=== PATIENT | male | born 1940 | race Caucasian/White ===

== ENCOUNTER 2016-04-19 13:09 | Emergency (ER) | payer MEDICARE, BC ==
--- NOTE | 2016-04-19 13:46 | CT REPORT ---
EXAM:CAT SCAN; HEAD W/O CON 76015 INDICATION: Multiple recent falls. Trauma. COMPARISON:02/03/2016 TECHNIQUE:Routine noncontrast axial head CT was performed. Radiation dose reduction technique was uti lized. FINDINGS: Some images were repeated due to patient motion artifact. Moderate cerebral atrophy is unch anged. Moderate chronic small vessel ischemic disease is again demonstrated in the cerebral white mat ter. No acute infarct is demonstrated. No extra-axial fluid collections are identified. There is no m ass. The skull appears intact. Opacification of part of the left ethmoid sinus and mild mucosal thickening in the left maxillary sinus are unchanged. A small lipoma in the left frontal scalp is unchanged. IMPRESSION: 1. No acute fracture or intracranial hemorrhage. No subdural hematoma. 2. Stable moderate diffuse cerebral atrophy and unchanged moderate chronic small vessel schema diseas e. No acute infarct. 3. Unchanged left ethmoid and left maxillary sinus inflammatory disease. Unchanged left frontal scalp lipoma. Final Electronic Signature: This report was electronically signed by Brijesh Hong MD on 04/19/2016 1:44 PM. madelin /
--- NOTE | 2016-04-19 15:04 | ER NURSING DOCUMENTATION ---
Nurse's Notes [facility] Name:Jim Hoover Age:76 yrs Sex:Male :1940 Arrival Date:04/19/2016 Time:13:09 BedTrauma A Private MD:Wilner Sheets Diagnosis:Closed Head Injury w/o Cranial Wound, Unspec State LOC;A FIB Presentation: 04/19 13:12 Presenting complaint: Patient states: FELL AT HOME THIS MORNING 0730. POSSIBLY LOST ew CONSCIOUSNESS. WAS WALKING FROM BEDROOM INTO BATHROOM. PATIENT BEILIEVES THAT HE HIT IS HEAD ON THE BATHTUB. Transition of care: [facility]. Notified ED Physician of Dr. Meyer notified. Care prior to arrival: None. Activity prior to arrival: Ambulatory @ scene. Mechanism of Injury: Fall from standing position. 13:12 Method Of Arrival: Wheelchair ew 13:12 Acuity: ARCADIO 3 ew 13:40 Mechanism of Injury: resulted from a fall. lpr Triage Assessment: 13:17 General: Appears in no apparent distress, comfortable, Behavior is cooperative, ew pleasant. Pain: Denies pain. EENT: No deficits noted. Neuro: No deficits noted. Cardiovascular: No deficits noted. Respiratory: No deficits noted. GI: No deficits noted. : No deficits noted. Derm: No deficits noted. Musculoskeletal: No deficits noted. Injury Description:. 13:48 Neuro:. ma 14:03 Neuro: Reports headache. ma Historical: - Allergies: Prozac; PENICILLINS; PENICILLINS; Bactrim; Morphine; Oxycodone HCl; [place] Carbonate; Prozac; SHELLFISH; Dilaudid; - PMHx: BIPOLAR DISORDER; HYPERTENSION; CANCER, PROSTATE; VAGUS NERVE STIMULATOR; BPH; OSTEOARTHRITIS; actinic keratosis; HYPERTENSION; ATRIAL FIB; GOUT; TIA; DEPRESSION; BIPOLAR DISORDER; obstructive sleep apnea; Hyperlipidemia; Chronic Hypokalemia; Staphylococcus aureus sepsis; Prostate Cancer; Syncope (February 03, 2016); Diabetes Mellitus; Squamos cell carcinoma; Hematoma - : Very Large Right Lower BackAnticoagulated (March 09, 2016); Fall (March 09, 2016); - PSHx: sinus surgery; prostatectomy; Bilateral cataract surgery; Bilateral cataract surgery; left knee replacement; - Tetanus: < 10 years. - Ebola Screening: : No symptoms or risks identified at this time. . - Immunization history: Pneumococcal vaccine is up to date, Flu Vaccine < 1 year. - Social history: Smoking status: Patient states was never smoker of tobacco. Patient uses alcohol. - Advance directive:: Yes. - Code Status:: No code. Screenin:49 Infectious Disease Risk None. Abuse screen: Denies threats or abuse. Nutritional ma screening: No deficits noted. Assessment: 14:22 Reassessment: Patient states feeling better. Patient states symptoms have improved. ma Patient appears in no apparent distress at this time. Able to ambulate without difficulty. Vital Signs: 13:19 BP 123 / 81; Pulse 92; Resp 18; Pulse Ox 96% on R/A; Weight 104.33 kg; Height 6 ft. 2 ew in. (187.96 cm); Pain 0/10; 13:30 BP 145 / 74; Pulse 88; Pulse Ox 97% 2 lpm ; ma 14:00 BP 149 / 61; Pulse 93; Pulse Ox 96% ; ma 13:19 Body Mass Index 29.53 (104.33 kg, 187.96 cm) ew 13:30 Pt not cooperative with monitoring equipment ma Lakisha Coma Score: 12:50 Eye Response: spontaneous(4). Verbal Response: oriented(5). Motor Response: obeys lpr commands(6). Total: 15. Trauma Score (Adult): 13:49 Eye Response: spontaneous(1); Verbal Response: oriented(1); Motor Response: obeys ma commands(2); Systolic BP: > 89 mm Hg(4); Respiratory Rate: 10 to 29 per min(4); Warren Score: 15; Trauma Score: 12 ED Course: 13:09 Patient arrived in ED. ds 13:09 Wilner Sheets MD is Private Physician. ds 13:11 Nellie Ann is Primary Nurse. ew 13:14 Triage completed. ew 13:15 Khoa Meyer MD is Attending Physician. sc 13:15 Pulse Ox - RN Monitoring Only NIBP On - RN Monitoring Only. ma 13:[address] tt 13:40 Patient moved back from CT. tt 13:52 Valuables Given to family. Patient has correct armband on for positive identification. ma Placed in gown. Bed in low position. Call light in reach. Side rails up X2. Adult w/ patient. 14:33 Wilner Sheets MD is Referral Physician. sc 15:02 Discontinued IV intact, bleeding controlled, pressure dressing applied, No ma redness/swelling at site. IV initiated by computer education teacher. Administered Medications: No medications were administered Outcome: 14:34 Discharge ordered by . or 15:02 Discharged to home [place] 15: Condition: stable 15:02 Instructed on discharge instructions, follow up and referral plans. 15:03 Patient left the ED. [place] 04/20 14:46 Discharge F/U Call: Unable to reach: left voicemail: lp Signatures: Rolanda Mitchell RN RN Lisa Crump RN RN wesley Pulido, Ann, Reg Reg ds Khoa Meyer MD MD sc Terriere, Tracy tt Roberts, Leslie RN RN Nellie Valentine
--- NOTE | 2016-04-19 15:04 | ER PHYSICIAN DOCUMENTATION ---
Physician Documentation [facility] Name:Jim Hoover Age:76 yrs Sex:Male :1940 Arrival Date:04/19/2016 Time:13:09 BedTrauma A Private MD:Wilner Sheets EDlayoKhoa Disposition: 04/19/16 14:34 Discharged to Home/Self Care. Impression: Closed Head Injury w/o Cranial Wound, Unspec State LOC, A FIB. - Condition is Good. - Discharge Instructions: ATRIAL FIBRILLATION, Acute Brain Injuries - HEAD INJURY, No Wake-Up (Adult). - Medical Reconciliation form form. - Follow up: Wilner Sheets MD; When: 1 week; Reason: Recheck today's complaints, Continuance of care. - Problem is new. - Symptoms have improved. HPI: 04/19 14:34 This 76 yrs old Male presents to ER via Wheelchair with complaints of Fall sc Injury. 14:34 Details of fall: The patient fell from an upright position, while standing, while sc walking. Onset: The symptom(s)/episode began/occurred at 07:30. Associated injuries: The patient sustained injury to the head, contusion. Associated signs and symptoms: Pertinent positives: memory problems, balance problems, Loss of consciousness: the patient experienced loss of consciousness, the patient was "dazed". The patient has experienced similar episodes in the past, a few times. aware of losing balance and falling, no syncope. Historical: - Allergies: Prozac; PENICILLINS; PENICILLINS; Bactrim; Morphine; Oxycodone HCl; [place] Carbonate; Prozac; SHELLFISH; Dilaudid; - PMHx: BIPOLAR DISORDER; HYPERTENSION; CANCER, PROSTATE; VAGUS NERVE STIMULATOR; BPH; OSTEOARTHRITIS; actinic keratosis; HYPERTENSION; ATRIAL FIB; GOUT; TIA; DEPRESSION; BIPOLAR DISORDER; obstructive sleep apnea; Hyperlipidemia; Chronic Hypokalemia; Staphylococcus aureus sepsis; Prostate Cancer; Syncope (February 03, 2016); Diabetes Mellitus; Squamos cell carcinoma; Hematoma - : Very Large Right Lower BackAnticoagulated (March 09, 2016); Fall (March 09, 2016); - PSHx: sinus surgery; prostatectomy; Bilateral cataract surgery; Bilateral cataract surgery; left knee replacement; - Tetanus: < 10 years. - Ebola Screening: : No symptoms or risks identified at this time. . - Immunization history: Pneumococcal vaccine is up to date, Flu Vaccine < 1 year. - Social history: Smoking status: Patient states was never smoker of tobacco. Patient uses alcohol. - Advance directive:: Yes. - Code Status:: No code. ROS: 14:36 Constitutional: Negative for fever, chills, and weight loss. sc Eyes: Negative for injury, pain, redness, and discharge. ENT: Negative for injury, pain, and discharge. Neck: Negative for injury, pain, and swelling. Cardiovascular: Negative for chest pain, palpitations, and edema. Respiratory: Negative for shortness of breath, cough, wheezing, and pleuritic chest pain. Abdomen/GI: Negative for abdominal pain, nausea, vomiting, diarrhea, and constipation. Back: Negative for injury and pain. Skin: Negative for injury, rash, and discoloration. 14:36 Psych: Negative for depression, anxiety, suicide ideation, homicidal ideation, and sc hallucinations. 14:36 MS/extremity: Positive for abrasion. 14:36 Neuro: Positive for loss of consciousness. Exam: Constitutional: This is a well developed, well nourished patient who is awake, alert, and in no acute distress. Head/Face: Normocephalic, atraumatic. Eyes: Pupils equal round and reactive to light, extra-ocular motions intact. Lids and lashes normal. Conjunctiva and sclera are non-icteric and not injected. Cornea within normal limits. Periorbital areas with no swelling, redness, or edema. ENT: Nares patent. No nasal discharge, no septal abnormalities noted. Tympanic membranes are normal and external auditory canals are clear. Oropharynx with no redness, swelling, or masses, exudates, or evidence of obstruction, uvula midline. Mucous membranes moist. Neck: Trachea midline, no thyromegaly or masses palpated, and no cervical lymphadenopathy. Supple, full range of motion without nuchal rigidity, or vertebral point tenderness. No meningismus. Chest/axilla: Normal chest wall appearance and motion. Nontender with no deformity. No lesions are appreciated. Cardiovascular: Regular rate and rhythm with a normal S1 and S2. No gallops, murmurs, or rubs. Normal PMI, no JVD. No pulse deficits. Respiratory: Lungs have equal breath sounds bilaterally, clear to auscultation and percussion. No rales, rhonchi or wheezes noted. No increased work of breathing, no retractions or nasal flaring. Abdomen/GI: Soft, non-tender, with normal bowel sounds. No distension or tympany. No guarding or rebound. No evidence of tenderness throughout. Back: No spinal tenderness. No costovertebral tenderness. Full range of motion. Male : Normal genitalia with no discharge or lesions. Skin: Warm, dry with normal turgor. Normal color with no rashes, no lesions, and no evidence of cellulitis. MS/ Extremity: Pulses equal, no cyanosis. Neurovascular intact. Full, normal range of motion, negative Homans's, calves equal bilaterally. 14:36 Neuro: Awake and alert, GCS 15, oriented to person, place, time, and situation. sc Cranial nerves II-XII grossly intact. Motor strength 5/5 in all extremities. Sensory grossly intact. Cerebellar exam normal. Normal gait. Vital Signs: 13:19 BP 123 / 81; Pulse 92; Resp 18; Pulse Ox 96% on R/A; Weight 104.33 kg; Height 6 ft. 2 ew in. (187.96 cm); Pain 0/10; 13:30 BP 145 / 74; Pulse 88; Pulse Ox 97% 2 lpm ; ma 14:00 BP 149 / 61; Pulse 93; Pulse Ox 96% ; ma 13:19 Body Mass Index 29.53 (104.33 kg, 187.96 cm) ew 13:30 Pt not cooperative with monitoring equipment wv Whitman Coma Score: 12:50 Eye Response: spontaneous(4). Verbal Response: oriented(5). Motor Response: obeys lpr commands(6). Total: 15. Trauma Score (Adult): 13:49 Eye Response: spontaneous(1); Verbal Response: oriented(1); Motor Response: obeys ma commands(2); Systolic BP: > 89 mm Hg(4); Respiratory Rate: 10 to 29 per min(4); Lakisha Score: 15; Trauma Score: 12 MDM: 13:15 Patient medically screened. nm 14:36 Differential diagnosis: abrasion, closed head injury, contusion. Data reviewed: vital sc signs, nurses notes, radiologic studies, CT scan, and as a result, I will discharge patient. Counseling: I had a detailed discussion with the patient and/or guardian regarding: the historical points, exam findings, and any diagnostic results supporting the discharge/admit diagnosis, radiology results, the need for outpatient follow up, Stepping On class referral. 04/19 13:48 Order name: CAT SCAN; HEAD W/O CON [id number] EDMS Dispensed Medications: No medications were administered Signatures: Rolanda Mitchell, Khoa Disla RN, ma, MD MD sc Wooley, Erin ew
== END 2016-04-19 15:04 | disposition home or self-care (01) ==
LOC: ER 13:09
DX: S06.891A Other specified intracranial injury with loss of consciousness of 30 minutes or less, initial encounter (principal); S00.91XA Abrasion of unspecified part of head, initial encounter; W19.XXXA Unspecified fall, initial encounter; Y92.012 Bathroom of single-family (private) house as the place of occurrence of the external cause; Y93.01 Activity, walking, marching and hiking; I48.91 Unspecified atrial fibrillation; I10 Essential (primary) hypertension; Z79.899 Other long term (current) drug therapy; Z85.46 Personal history of malignant neoplasm of prostate
CPT/HCPCS: 70450; 99283; 99284

== ENCOUNTER 2016-08-30 12:45 | Observation (INO) | payer MEDICARE, BC ==
[2016-08-30] MEDS ORDERED: FENTANYL 100 MCG/2 ML VIAL ONE ×2 (13:04→13:27)
[2016-08-30] MEDS ORDERED: ONDANSETRON ODT 4 MG TAB.RAPDIS ONE (13:05)
[2016-08-30] MEDS ORDERED: NORMAL SALINE 1,000 ML IV ONE (13:27)
[2016-08-30 14:39] LABS: INR 1.8
[2016-08-30 14:43] LABS: A/G RATIO 1.5; ALBUMIN 4.6 g/dL (3.5-5.0); ALKALINE PHOSPHATASE 65 U/L (38-126); ALT 35 U/L (21-72); AST 40 U/L (17-59); BILIRUBIN, TOTAL 1.2 mg/dL (0.2-1.3); BLOOD UREA NITROGEN 23 mg/dL (9-20); CALCIUM 10.2 mg/dL (8.4-10.2); CHLORIDE 101 mmol/L (98-107); EST GLOMERULAR FILTRATION RATE > 60 mL/min; GLUCOSE 177 mg/dL (70-100); POTASSIUM 3.9 mmol/L (3.5-5.1); SODIUM 139 mmol/L (137-145); TOTAL PROTEIN 7.6 g/dL (6.3-8.2)
[2016-08-30 14:47] LABS: BASOPHILS 0.1 % (0.0-2.0); EOSINOPHILS 0.4 % (0.0-6.0); HEMOGLOBIN 17.2 g/dL (14.0-18.0); LYMPHOCYTES# 0.8 X 10^3uL (0.8-3.8); MEAN CELL VOLUME 91.2 fL (80.0-100.0); MEAN CORPUS. HGB CONCENTRATION 35.1 g/dL (32.0-36.0); MEAN PLATELET VOLUME 9.6 fL (7.4-10.4); MONOCYTES 5.8 % (2.0-10.0); MONOCYTES# 0.7 X 10^3uL (0.2-1.0); NEUTROPHILS 86.7 % (54.0-75.0); NEUTROPHILS# 10.6 X 10^3uL (2.6-6.7); PLATELET COUNT 222 X 10^3uL (130-440); RED BLOOD COUNT 5.37 X 10^6uL (4.20-6.10); RED CELL DISTRIBUTION WIDTH 14.2 % (11.5-14.5); WHITE BLOOD COUNT 12.1 X 10^3uL (3.9-10.7)
[2016-08-30] MEDS ORDERED: POLYETHYLENE GLYCOL 3350 17 GM POWD.PACK PO PRN (17:51)
[2016-08-30] MEDS ORDERED: HOME MEDICATION LIST NEEDED 1 EA EACH MISC ONE (17:51)
[2016-08-30] MEDS ORDERED: ACETAMINOPHEN 325 MG TABLET PO PRN (17:51)
[2016-08-30] MEDS ORDERED: MAG-AL PLUS XS SUSP 30 ML UDC PO PRN (17:51)
[2016-08-30] MEDS ORDERED: ZOLPIDEM TARTRATE 5 MG TABLET PO PRN (17:51)
[2016-08-30] MEDS ORDERED: DEXTROSE 50% WATER 25 GM/50 ML SYR IV PRN (18:06)
[2016-08-30] MEDS ORDERED: DIPH,PERTUSS(ACELL),TET VAC/PF 0.5 ML VIAL IM ONE ×2 (18:09→22:09)
[2016-08-30] MEDS: traMADol HCL 50 MG TABLET PO PRN (18:48)
[2016-08-30] MEDS ORDERED: metFORMIN 500 MG TABLET PO SCH (21:00)
[2016-08-30] MEDS ORDERED: FENOFIBRATE MICRONIZED 160 MG PO SCH (21:00)
[2016-08-30] MEDS: metFORMIN 500 MG TABLET PO SCH (21:01)
[2016-08-30] MEDS: INSULIN LISPRO 100 UNIT/ML ML SUBCUT SCH (22:23)
[2016-08-31] MEDS: traMADol HCL 50 MG TABLET PO PRN ×2 (00:57→09:24)
[2016-08-31] MEDS: INSULIN LISPRO 100 UNIT/ML ML SUBCUT SCH ×4 (07:19→23:06)
[2016-08-31] MEDS: metFORMIN 500 MG TABLET PO SCH ×2 (08:08→23:08)
--- NOTE | 2016-08-31 08:30 | CONSULTATION ---
DATE OF ADMISSION: 08/30/16 CONSULTING PHYSICIAN: Wilner Sheets MD HISTORY OF PRESENT ILLNESS: Patient is a 76-year-old male who suffered a right humeral fracture, and is scheduled for surgery 08/31/[address] Anderson[address]. Anderson has requested a consultation, preoperative history and physical and surgical clearance. Patient has no other complaints at this time. Injury happened when he tried to help his dog down the stairs. Apparently he lost his balance and fell down 14 steps. He noticed immediate pain in the right arm. He felt no further new pain in the low back. The patient is currently scheduled for low back surgery with neurosurgeon Dr. Santillan in 2 weeks. ALLERGIES: Bactrim. Dilaudid (vomiting, GI distress), [place], Morphine, Oxycodone, Penicillin, Prozac (rash), shell fish (vomiting, GI distress). MEDICATIONS Vitamin D 2000 units 1 tab p.o. daily. Minocycline 100 mg p.o. daily. Liothyronine 50 mcg 1-2 tabs daily (current dose is not clear). Fetzima 40 mg p.o. daily. Coumadin 2.5 mg p.o. daily. Amlodipine/Benazepril 10/20 mg p.o. daily. Abilify 2 mg tab p.o. daily. Nystatin 100,000 units per gram powder to be applied topically q.i.d. PRN candidiasis rash. Metformin 500 mg p.o. b.i.d. Olmesartan/Hydrochlorothiazide 40/25 mg 1 tab p.o. q.a.m. Bystolic 10 mg 2 tabs p.o. daily. Fenofibrate 160 mg p.o. q.h.s. KCL 10 MEQ p.o. daily. Lamotrigine 200 mg p.o. daily. Allopurinol 300 mg p.o. daily. Wellbutrin XL 150 mg 2 tabs p.o. daily. PAST MEDICAL HISTORY 1. Anisocoria (unequal pupils). 2. Diabetes mellitus diagnosed 2016. 3. Transient ischemic attack, previously followed by Neurologist Dr. Cummings. 4. Vagus nerve stimulator (VNS), followed by Dr. Wallace. 5. Lumbar spinal stenosis, followed by Dr. Santillan. 6. 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 Landon. 7. Prostate cancer, status post robotic prostatectomy and followed by Dr. Riggins. 8. Obstructive sleep apnea, on CPAP, followed by Dr. Bhardwaj. 9. Hyperlipidemia. 10. Hypertension. 11. Gout. 12. Lumbar degenerative joint disease. 13. Depression, followed by Dr. Omalley. 14. Benign prostatic hypertrophy. 15. Bipolar affective disorder, with elements of both depression and petra. 16. Atrial fibrillation, followed by Dr. Mcclain. 17. Recurrent intertriginous candidiasis. 18. Lumbar degenerative disk disease. 19. Staphylococcus aureus sepsis in 2011, secondary to right elbow wound, resulting in delirium. 20. Neurogenic claudication. 21. Morbid obesity. 22. Chronic low back pain. 23. Bilateral knee osteoarthritis. 24. Gait instability. 25. Acinetic keratosis. 26. Cholelithiasis, asymptomatic. 27. Chronic hypokalemia. 28. Left total knee replacement 2012. 29. Right quadriceps tendon rupture surgery 2011. 30. Cataract surgery 2011. 31. Transurethral resection of the prostate 2009. 32. Sinus surgery x3. 33. Left rotator cuff repair x2 2008, unsuccessful. SOCIAL HISTORY: , no children. 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 Social alcohol. No smoking. FAMILY HISTORY: Father at 78 of cerebrovascular accident and hypertension. Mother at 93 of diabetes. Sister of Alzheimers and had transient ischemic attack. Another sister has ulcerative colitis and ileostomy. A third sister has ulcerative colitis. REVIEW OF SYSTEMS: No chest pain, chest pressure, chest tightness or other anginal symptoms. No underlying coronary artery disease. No lung, kidney, liver , thyroid, seizures, new skin, allergy or unusual bleeding disorders. PREVENTATIVE HEALTH: Td 2006 and is due for Tdap today. Pneumovax 2002. Prevnar 2014. Gets annual flu shot. PHYSICAL EXAMINATION VITAL SIGNS: Not available to me at this time. HEENT: EOMI. Pupils equal to light. Normal conjunctivae. TMs normal. No coryza. Pharynx not injected. Midline structures. NECK: No lymphadenopathy. No thyromegaly. No carotid bruits. Neck supple. CHEST: Clear. No rales, rhonchi or wheezes. Good breath sounds and symmetry throughout. COR: RRR without murmurs, gallops, rubs or clicks. No jugular venous distention. No ectopy. ABDOMEN: Soft, nontender. No hepatosplenomegaly. No masses. No bruits. No inguinal nodes. Bowel sounds present. LOWER EXTREMITIES: No edema. Peripheral pulses present. Negative Homans sign. Right hand neurovascularly intact. Please see Dr. Gómez note for further details with respect to right arm. NEUROLOGIC: Cranial nerves 2-12 intact. Motor 5/5 and appears to have good strength in right hand. Sensory intact throughout. EKG: Pending. LABORATORY DATA: White blood cell count 12.1, hemoglobin and hematocrit 17.2/ 49.0, platelets 222,000. Sodium 139, potassium 3.9, chloride 101, CO2 23, BUN 23 , creatinine 1.2, glucose 177. Calcium 10.2, total bilirubin 1.2. AST 40, ALT 35 , alkaline phosphatase 65, total protein 7.6, albumin 4.6. Protime 23.9 with INR 1.8. ASSESSMENT 1. Right humeral fracture. 2. Atrial fibrillation, on Coumadin. 3. Diabetes mellitus type 2. 4. Hypertension. 5. Hyperlipidemia. 6. Morbid obesity. 7. Obstructive sleep apnea, on CPAP. 8. Prostate cancer. 9. Depression/bipolar I, status post vagus nerve stimulator. PLAN 1. Patient is considered cleared for above surgery. 2. Will discuss with Dr. Anderson whether to consider vitamin K for elevated INR. 3. Tdap. 4. Hold Metformin in a.m. 5. Glucoscans q.a.c. and q.h.s. with Humalog insulin sliding scale. 6. INR in a.m. 7. DNR status. Copies to: Dr. Anderson, Dr. Santillan (neurosurgeon, [place]) [facility]
--- NOTE | 2016-08-31 08:45 | CT REPORT ---
HISTORY: Head trauma status post a fall COMPARISON: CT angiography from July 25, 2016 TECHNIQUE: Axial non-contrast images obtained from skull vertex through foramen magnum. Dose reduction technique was utilized. FINDINGS: Postoperative changes of prior sinonasal surgery. Inflammatory changes demonstrated in the left ethmo id air cells, unchanged from prior. The calvarium and skull base appear normal without evidence of fr acture. There is moderate atrophy of the brain parenchyma with patchy subcortical white matter hypoattenuatio n. This results in mild ventricular enlargement. Intracranial atherosclerosis is further noted. Findi ngs are nonspecific but most compatible with chronic microvascular changes. Mild crowding of the high cortical sulci seen. No intracranial hemorrhage observed. No evidence of a pathologic extra-axial fl uid collection. No midline shift or hydrocephalus. Is a small lipoma in the left frontal scalp on ser ies 3 image 11. No scalp hematoma seen. IMPRESSION: 1. No evidence of an acute traumatic intracranial process. 2. Evidence of chronic microvascular change. Final Electronic Signature: This report was electronically signed by Tj Rawls MD on 08/31/2016 8:42 AM. renetta /
[2016-08-31] MEDS ORDERED: LISINOPRIL 20 MG TABLET PO SCH (09:00)
[2016-08-31] MEDS ORDERED: AMLODIPINE BESYLATE 5 MG TABLET PO SCH (09:00)
[2016-08-31] MEDS ORDERED: ALLOPURINOL 300 MG TABLET PO SCH (09:00)
[2016-08-31] MEDS ORDERED: LISINOPRIL 10 MG TABLET PO SCH (09:00)
[2016-08-31] MEDS ORDERED: LAMOTRIGINE 200 MG PO SCH (09:00)
[2016-08-31] MEDS ORDERED: OLMESARTAN PO SCH (09:00)
[2016-08-31] MEDS ORDERED: LAMOTRIGINE 150 MG PO SCH (09:00)
[2016-08-31] MEDS ORDERED: POTASSIUM CHLORIDE ER 10 MEQ TABLET PO SCH (09:00)
[2016-08-31] MEDS ORDERED: LAMOTRIGINE 25 MG TABLET PO SCH (09:00)
[2016-08-31] MEDS ORDERED: LEVOMILNACIPRAN HYDROCHLORIDE 40 MG PO SCH ×2 (09:00)
[2016-08-31] MEDS ORDERED: [UNRECOGNIZED DRUG - OTHER] PO SCH (09:00)
[2016-08-31] MEDS ORDERED: NEBIVOLOL HCL 10 MG TABLET PO SCH (09:00)
[2016-08-31] MEDS ORDERED: buPROPion XL DAILY 150 MG TABLET PO SCH (09:00)
[2016-08-31] MEDS ORDERED: Minocycline Hcl [Minocin] 100 MG PO SCH ×2 (09:00)
[2016-08-31] MEDS ORDERED: BENAZEPRIL PO SCH (09:00)
[2016-08-31] MEDS ORDERED: CHOLECALCIFEROL 1,000 UNIT CAPSULE PO SCH (09:00)
[2016-08-31] MEDS ORDERED: HYDROCHLOROTHIAZIDE PO SCH (09:00)
[2016-08-31] MEDS ORDERED: LIOTHYRONINE PO SCH (09:00)
[2016-08-31] MEDS ORDERED: ARIPIPRAZOLE 1 MG PO SCH (09:00)
[2016-08-31] MEDS ORDERED: AMLODIPINE PO SCH (09:00)
--- NOTE | 2016-08-31 11:21 | RADIOLOGY REPORT ---
Three views of the humerus demonstrates comminuted oblique fracture of the distal humeral shaft with approximately 30 degrees of apex anterior angulation. Limited views of the joints are unremarkable. IMPRESSION: Comminuted, angulated right distal humerus fracture. MTDD
[2016-08-31] MEDS ORDERED: ACETAMINOPHEN 325 MG TABLET PO PRN ×3 (14:23→16:52)
[2016-08-31] MEDS ORDERED: ZOLPIDEM TARTRATE 5 MG TABLET PO PRN ×2 (14:23→16:52)
[2016-08-31] MEDS ORDERED: MAG-AL PLUS XS SUSP 30 ML UDC PO PRN ×2 (14:23→16:52)
[2016-08-31] MEDS ORDERED: DEXTROSE 50% WATER 25 GM/50 ML SYR IV PRN ×2 (14:23→16:52)
[2016-08-31] MEDS ORDERED: POLYETHYLENE GLYCOL 3350 17 GM POWD.PACK PO PRN ×2 (14:23→16:52)
[2016-08-31] MEDS ORDERED: traMADol HCL 50 MG TABLET PO PRN ×2 (14:23→16:52)
[2016-08-31] MEDS ORDERED: LIDOCAINE HCL 1% 20 ML VIAL SUBCUT PRN ×2 (14:23→16:52)
[2016-08-31] MEDS ORDERED: FAMOTIDINE IN SALINE, ISO-OSM 20 MG/50 ML PIGGYBACK IV SCH ×2 (14:30→16:52)
[2016-08-31] MEDS ORDERED: FENTANYL 100 MCG/2 ML VIAL ONE (14:39)
[2016-08-31] MEDS ORDERED: LACTATED RINGERS 1,000 ML IV SCH (15:00)
[2016-08-31] MEDS ORDERED: SUCCINYLCHOLINE CHLORIDE 200 MG/10 ML VIAL ONE (15:07)
[2016-08-31] MEDS ORDERED: ONDANSETRON HCL 4 MG/2 ML VIAL ONE (15:11)
[2016-08-31] MEDS ORDERED: INSULIN LISPRO 100 UNIT/ML ML SUBCUT SCH (17:00)
[2016-08-31] MEDS: LACTATED RINGERS 1,000 ML IV SCH (17:06)
--- NOTE | 2016-08-31 18:19 | PROCEDURE NOTE ---
Diagnosis right humeral shaft fracture Procedure right humeral shaft closed reduction with application of coaptation splint The patient was brought to the OR suite and after administration of general anesthesia a reduction maneuver was performed on the right humeral shaft. Fluoroscopic imaging was utilized. A coaptation splint was applied followed by a sling. Patient was subsequently transferred from the OR suite to the recovery room in a stable condition. SNEHAL
[2016-08-31] MEDS ORDERED: FENOFIBRATE 145 MG TABLET PO SCH ×3 (21:00)
[2016-08-31] MEDS ORDERED: metFORMIN 500 MG TABLET PO SCH (21:00)
[2016-09-01] MEDS: LACTATED RINGERS 1,000 ML IV SCH (05:22)
[2016-09-01] MEDS ORDERED: traMADol HCL 50 MG TABLET PO ONE (08:09)
[2016-09-01] MEDS: INSULIN LISPRO 100 UNIT/ML ML SUBCUT SCH ×2 (08:11→11:38)
[2016-09-01] MEDS: metFORMIN 500 MG TABLET PO SCH (08:26)
[2016-09-01] MEDS ORDERED: LAMOTRIGINE 150 MG PO SCH ×2 (09:00)
[2016-09-01] MEDS ORDERED: NON-FORMULARY MEDICATION PO SCH (09:00)
[2016-09-01] MEDS ORDERED: POTASSIUM CHLORIDE ER 10 MEQ TABLET PO SCH ×2 (09:00)
[2016-09-01] MEDS ORDERED: ALLOPURINOL 300 MG TABLET PO SCH ×2 (09:00)
[2016-09-01] MEDS ORDERED: LEVOMILNACIPRAN HYDROCHLORIDE 80 MG PO SCH ×3 (09:00)
[2016-09-01] MEDS ORDERED: buPROPion XL DAILY 150 MG TABLET PO SCH ×2 (09:00)
[2016-09-01] MEDS ORDERED: ARIPIPRAZOLE 1 MG PO SCH ×3 (09:00)
[2016-09-01] MEDS ORDERED: NEBIVOLOL HCL 10 MG TABLET PO SCH ×2 (09:00)
[2016-09-01] MEDS ORDERED: LIOTHYRONINE 25 MCG PO SCH ×3 (09:00)
[2016-09-01] MEDS ORDERED: LAMOTRIGINE 25 MG TABLET PO SCH ×2 (09:00)
[2016-09-01] MEDS ORDERED: AMLODIPINE BESYLATE 5 MG TABLET PO SCH ×2 (09:00)
[2016-09-01] MEDS ORDERED: MINOCYCLINE HCL 100 MG PO SCH ×3 (09:00)
[2016-09-01] MEDS ORDERED: CHOLECALCIFEROL 1,000 UNIT CAPSULE PO SCH ×2 (09:00)
[2016-09-01] MEDS ORDERED: LISINOPRIL 20 MG TABLET PO SCH ×2 (09:00)
--- NOTE | 2016-09-01 09:19 | PROGRESS NOTE: IM SOAP ---
IM: PN Subjective Interval history: Patient in OR yesterday when I came by. Last night had profound owning with confusion and disorientation. Better today, nicolette since he is back on usual meds. Pain issues last night but better today on Tramadol. IM: PN Objective Exam - I&O/Vital Signs I&O: Intake & Output 08/31/16 09/01/16 09/01/16 21:59 05:59 13:59 Intake Total 600 700 Output Total 0 850 Balance 600 -150 Weight 99.79 kg Intake: IV 600 550 Left Forearm 600 550 Oral 0 150 Output: Urine 0 850 Other: Urine Appearance Clear Urine Color Dark Mary Voiding Method Toilet Toilet # Voids 1 Vital Signs: Last Vital Signs Temp 36.6 C 09/01/16 06:23 Pulse 87 09/01/16 07:20 Resp 14 09/01/16 06:23 BP 153/92 09/01/16 07:00 Pulse Ox 96 09/01/16 07:20 Oxygen Flow Rate 1 Oxygen Delivery Method Nasal Cannula - Respiratory Respiratory exam: Present: clear - Cardiovascular Cardiovascular exam: Present: RRR. Absent: systolic murmur - GI/Abdominal GI/Abdominal exam: Present: soft. Absent: tenderness - Extremities Exam Extremities exam: Absent: calf tenderness, edema Additional comments: Right hand NV intact - Lab Labs: Laboratory Last Values WBC 12.1 X 10^3uL (3.9-10.7) H 08/30/16 14:15 RBC 5.37 X 10^6uL (4.20-6.10) 08/30/16 14:15 Hgb 17.2 g/dL (14.0-18.0) 08/30/16 14:15 Hct 49.0 % (42.0-54.0) 08/30/16 14:15 MCV 91.2 fL (80.0-100.0) 08/30/16 14:15 MCH 32.0 pg (29.0-35.0) 08/30/16 14:15 MCHC 35.1 g/dL (32.0-36.0) 08/30/16 14:15 RDW 14.2 % (11.5-14.5) 08/30/16 14:15 Plt Count 222 X 10^3uL (130-440) 08/30/16 14:15 MPV 9.6 fL (7.4-10.4) 08/30/16 14:15 Neutrophils % 86.7 % (54.0-75.0) H 08/30/16 14:15 Lymphocytes % 7.0 % (20.0-40.0) L 08/30/16 14:15 Eosinophils % 0.4 % (0.0-6.0) 08/30/16 14:15 Basophils % 0.1 % (0.0-2.0) 08/30/16 14:15 Neutrophils # 10.6 X 10^3uL (2.6-6.7) H 08/30/16 14:15 Lymphocytes # 0.8 X 10^3uL (0.8-3.8) 08/30/16 14:15 Monocytes 5.8 % (2.0-10.0) 08/30/16 14:15 Monocytes # 0.7 X 10^3uL (0.2-1.0) 08/30/16 14:15 Eosinophils # 0.0 X 10^3uL (0.0-0.4) 08/30/16 14:15 Basophils # 0.0 X 10^3uL (0.0-0.1) 08/30/16 14:15 PT 23.9 sec (13.0-16.6) H 08/30/16 14:15 Capillary INR 1.6 (0.8-1.2) H D 08/31/16 05:40 INR 1.8 D 08/30/16 14:15 Sodium 139 mmol/L (137-145) 08/30/16 14:15 Potassium 3.9 mmol/L (3.5-5.1) 08/30/16 14:15 Chloride 101 mmol/L (98-107) 08/30/16 14:15 Carbon Dioxide 23 mmol/L (22-30) 08/30/16 14:15 BUN 23 mg/dL (9-20) H 08/30/16 14:15 Creatinine 1.2 mg/dL (0.7-1.3) 08/30/16 14:15 GFR Calculation > 60 mL/min 08/30/16 14:15 Glucose 177 mg/dL (70-100) H 08/30/16 14:15 Calcium 10.2 mg/dL (8.4-10.2) 08/30/16 14:15 Total Bilirubin 1.2 mg/dL (0.2-1.3) 08/30/16 14:15 AST 40 U/L (17-59) 08/30/16 14:15 ALT 35 U/L (21-72) 08/30/16 14:15 Alkaline Phosphatase 65 U/L (38-126) 08/30/16 14:15 Total Protein 7.6 g/dL (6.3-8.2) 08/30/16 14:15 Albumin 4.6 g/dL (3.5-5.0) 08/30/16 14:15 Albumin/Globulin Ratio 1.5 08/30/16 14:15 Assessment and Plan - Date of Encounter Date of Encounter: 09/01/16 (1) Humerus distal fracture Status: Acute Assessment and plan: Post surgery Pain better control PT for fall risk Discharge today Current Visit: Yes (2) Atrial fibrillation, controlled Status: Chronic Current Visit: No (3) Bipolar 1 disorder Status: Chronic Assessment and plan: Sundowning, better Current Visit: No (4) Diabetes mellitus Status: Chronic Current Visit: No (5) Gait instability Status: Chronic Assessment and plan: Fall risk PT Current Visit: No - Time Spent With Patient Total time spent with greater than 50% in coordination of care (as documented) at patient's floor/unit and/or counseling patient: Quality Questions - VTE Prophylaxis Assessment VTE Present on Admission?: No Patient at risk for venous thromboembolism?: Yes VTE Risk Level: Low Risk Pharmaceutical VTE prophylaxis contraindication reason: N/A- VTE prophylaxsis ordered Mechanical VTE prophylaxis contraindication reason: not indicated (1) Humerus distal fracture Qualifiers: Laterality: right (4) Diabetes mellitus Qualifiers:
[2016-09-01 11:33] VITALS: BP 122/77; PULSE 85; RESP 24; TEMP 97.8; O2SAT 92
--- NOTE | 2016-09-01 17:38 | PROGRESS NOTE: Orthopedics ---
Orthopedic PN Subjective - Subjective Principal Diagnosis: right humerus fracture Post-op Day: 1 Interval history: the patient has been doing well. His pain has been well- controlled. He is complaining of some right arm pit pain. Ortho PN Objective Exam - Latest Vital Signs and I&O Latest Vital Signs/I&O: Vital Signs Temp 36.6 C 09/01/16 11:00 Pulse 85 09/01/16 11:00 Resp 24 09/01/16 11:00 BP 122/77 09/01/16 11:00 Pulse Ox 92 09/01/16 11:00 Intake & Output 08/31/16 09/01/16 09/01/16 17:59 05:59 17:59 Intake Total 1200 700 150 Output Total 250 850 Balance 950 -150 150 Weight 99.79 kg Intake: IV 600 550 Left Forearm 600 550 Oral 600 150 150 Output: Urine 250 850 Other: Urine Appearance Clear Clear Urine Color Dark Mary Dark Mary Voiding Method Toilet Toilet Toilet # Voids 1 - Post-Operative Exam Post-op Day: 1 Distal Pulses: +2 Active Motor: intact Sensation: intact Additional Exam: Coaptation splint in place. Radial pulse 2/4. Motor intact. - Lab Labs: Laboratory Last Values WBC 12.1 X 10^3uL (3.9-10.7) H 08/30/16 14:15 RBC 5.37 X 10^6uL (4.20-6.10) 08/30/16 14:15 Hgb 17.2 g/dL (14.0-18.0) 08/30/16 14:15 Hct 49.0 % (42.0-54.0) 08/30/16 14:15 MCV 91.2 fL (80.0-100.0) 08/30/16 14:15 MCH 32.0 pg (29.0-35.0) 08/30/16 14:15 MCHC 35.1 g/dL (32.0-36.0) 08/30/16 14:15 RDW 14.2 % (11.5-14.5) 08/30/16 14:15 Plt Count 222 X 10^3uL (130-440) 08/30/16 14:15 MPV 9.6 fL (7.4-10.4) 08/30/16 14:15 Neutrophils % 86.7 % (54.0-75.0) H 08/30/16 14:15 Lymphocytes % 7.0 % (20.0-40.0) L 08/30/16 14:15 Eosinophils % 0.4 % (0.0-6.0) 08/30/16 14:15 Basophils % 0.1 % (0.0-2.0) 08/30/16 14:15 Neutrophils # 10.6 X 10^3uL (2.6-6.7) H 08/30/16 14:15 Lymphocytes # 0.8 X 10^3uL (0.8-3.8) 08/30/16 14:15 Monocytes 5.8 % (2.0-10.0) 08/30/16 14:15 Monocytes # 0.7 X 10^3uL (0.2-1.0) 08/30/16 14:15 Eosinophils # 0.0 X 10^3uL (0.0-0.4) 08/30/16 14:15 Basophils # 0.0 X 10^3uL (0.0-0.1) 08/30/16 14:15 PT 23.9 sec (13.0-16.6) H 08/30/16 14:15 Capillary INR 1.6 (0.8-1.2) H D 08/31/16 05:40 INR 1.8 D 08/30/16 14:15 Sodium 139 mmol/L (137-145) 08/30/16 14:15 Potassium 3.9 mmol/L (3.5-5.1) 08/30/16 14:15 Chloride 101 mmol/L (98-107) 08/30/16 14:15 Carbon Dioxide 23 mmol/L (22-30) 08/30/16 14:15 BUN 23 mg/dL (9-20) H 08/30/16 14:15 Creatinine 1.2 mg/dL (0.7-1.3) 08/30/16 14:15 GFR Calculation > 60 mL/min 08/30/16 14:15 Glucose 177 mg/dL (70-100) H 08/30/16 14:15 Calcium 10.2 mg/dL (8.4-10.2) 08/30/16 14:15 Total Bilirubin 1.2 mg/dL (0.2-1.3) 08/30/16 14:15 AST 40 U/L (17-59) 08/30/16 14:15 ALT 35 U/L (21-72) 08/30/16 14:15 Alkaline Phosphatase 65 U/L (38-126) 08/30/16 14:15 Total Protein 7.6 g/dL (6.3-8.2) 08/30/16 14:15 Albumin 4.6 g/dL (3.5-5.0) 08/30/16 14:15 Albumin/Globulin Ratio 1.5 08/30/16 14:15 Assessment and Plan-Ortho - Date of Encounter Date of Encounter: 09/01/16 (1) Humerus distal fracture Status: Acute Assessment and plan: The patient will be discharged home today as per medicine. He will keep his splint and sling in place. He will sleep upright at 45 degrees or greater to allow the fracture to maintain alignment. The splint was adjusted with the patient sitting up which alleviated his arm pit pain. He should follow up with me in less than 2 weeks for films and to switch him out to a functional brace. (1) Humerus distal fracture Qualifiers: Encounter type: initial encounter Fracture type: closed Fracture alignment: displaced Laterality: right
--- NOTE | 2016-09-02 07:49 | DISCHARGE SUMMARY ---
DATE OF ADMISSION: 08/30/16 DATE OF DISCHARGE: 09/01/16 ATTENDING PHYSICIAN: Wilner Sheets MD DIAGNOSES 1. Comminuted right distal humeral fracture. 2. Atrial fibrillation. 3. Diabetes mellitus, type 2. 4. Hypertension. 5. Hyperlipidemia. 6. Morbid obesity. 7. Obstructive sleep apnea on CPAP. 8. Prostate cancer. 9. Bipolar I, status post vagus nerve stimulator. PROCEDURE: Right humeral shaft closed reduction with application of coaptation splint by Orthopedic Surgeon Dr. Anderson. HISTORY OF PRESENT ILLNESS: Patient is a 76-year-old male who suffered a comminuted right distal humeral fracture. Injury happened when he tried to help his dog down the stairs. Apparently he lost his balance and fell down 14 steps. He is scheduled for low back surgery with Neurosurgeon Dr. Santillan in 2 weeks. Please see previously dictated history and physical for further details. HOSPITAL COURSE: Patient has a comminuted right distal humeral fracture, for which Orthopedic Surgeon Dr. Anderson did a closed reduction with application of coaptation splint on 08/31/16. Patient had a considerable amount of pain that night and developed sun downing with confusion and disorientation last night. This morning, the sun downing seems to have resolved and pain is under better control with a combination of Tramadol and Acetaminophen. Right arm is currently immobilized. Patient did receive a Tdap shot at the time of admission. Diabetes remains well controlled throughout his stay, and as did all his other various health problems. Note that patient has underlying atrial fibrillation for which he takes Coumadin. Type 2 diabetes mellitus, hypertension , hyperlipidemia, morbid obesity, obstructive sleep apnea for which he is on CPAP, prostate cancer and bipolar I for which he has had a vagus nerve stimulator. DISCHARGE INSTRUCTIONS: Patient may participate in activities as able. I did have physical therapy assess him for fall risk and he will be discharged on a cane or walker depending on physical therapist evaluation. He is on a diabetic diet. He will be following up with Dr. Anderson in the near future. Apparently his back surgery with Dr. Santillan has been rescheduled. DISCHARGE MEDICATIONS Acetaminophen 325-650 mg p.o. q.4-6 hours PRN. Tylenol PM 3 tabs p.o. q.h.s. Allopurinol 300 mg p.o. daily. Amlodipine/Benazepril 1 tab p.o. daily. Abilify 1 mg p.o. daily. Bupropion XL 300 mg p.o. daily. Vitamin D 2000 International Units p.o. daily. Fenofibrate 160 mg p.o. q.h.s. Lamotrigine 200 mg p.o. daily. Fetzima 80 mg p.o. daily. Liothyronine (Cytomel) 25 mcg p.o. daily for depression. Lisinopril 20 mg p.o. daily. Metformin 500 mg p.o. b.i.d. Minocycline 100 mg p.o. daily. Bystolic 20 mg p.o. daily. Nystatin powder applied topically q.i.d. PRN. Olmesartan/Hydrochlorothiazide 40/25 mg 1 tab p.o. daily. KCL 10 MEQ p.o. daily. Warfarin 2.5 mg p.o. daily. Tramadol 50 mg p.o. q.i.d. PRN pain #50, 1 refill. Copies to: Dr. Anderson, [facility]illan [facility]
--- NOTE | 2016-09-05 07:49 | ER NURSING DOCUMENTATION ---
Nurse's Notes [facility] Name:Jim Hoover Age:76 yrs Sex:Male :1940 Arrival Date:08/30/2016 Time:12:37 Bed6 Private MD: Diagnosis:Low Humerus Fracture Presentation: 08/30 12:41 Presenting complaint: Patient states: Mechanical Fall at home. Care prior to arrival: lp EMS Report. Mechanism of Injury: Fall down steps an unknown distance. Trauma event details: Injury occurred in the [facility]. 12:41 Acuity: ARCADIO 3 lp 12:41 Method Of Arrival: EMS: 420 lp 12:44 Transition of care: Home. Notified ED Physician of Dr. Jarvis notified. lp 12:44 Acuity: ARCADIO 2 lp Triage Assessment: 12:58 General: Appears in no apparent distress, Behavior is appropriate for age. Pain: lp Complains of pain in anterior aspect of right shoulder and right bicep. EENT: No deficits noted. Neuro: Level of Consciousness is awake, alert, Oriented to person, place, time, event, Return Checker are weak on right Obvious injury. Cardiovascular: Heart tones S1 S2 Rhythm is irregular. Respiratory: Breath sounds are clear bilaterally. GI: Bowel sounds present X 4 quads. : No deficits noted. Derm: No deficits noted. Musculoskeletal: Circulation, motion, and sensation intact Capillary refill < 3 seconds Range of motion limited in right shoulder Swelling present in right arm. Historical: - Allergies: Bactrim; Dilaudid; [place] Carbonate; Morphine; Oxycodone HCl; PENICILLINS; Prozac; SHELLFISH; - Home Meds: 1. Diflucan 100 mg oral tab 1 tab twice a day 2. nystatin 100,000 unit/gram topical powd 3. tramadol 50 mg oral tab 2 tabs every 6 hours for Neuropathic Pain 4. metformin 500 mg oral tab 1 tab 2 times per day with morning and evening meals 5. olmesartan-hydrochlorothiazide 40-25 mg oral tab 1 tab once daily for Hypertension 6. fenofibrate 160 mg oral tab 1 tab once daily 7. Bystolic 10 mg oral tab 1 tab once daily 8. Klor-Con 10 10 mEq oral TbER 1 tab once daily for Hypokalemia Prevention 9. lamotrigine 200 mg oral tab 1 tab once daily 10. allopurinol 300 mg oral tab 1 tab once daily 11. Wellbutrin XL 150 mg oral Tb24 1 tab once daily - PMHx: CHOLELITHIASIS; Diabetes - NIDDM; Prostate Cancer; TIA; ATRIAL FIB; Chronic Hypokalemia; Obstructive Sleep Apnea; Hyperlipidemia; Hypertension; GOUT; DEPRESSION; BPH; BIPOLAR DISORDER; Morbid Obesity; ANEMIA; Gait Instability; - PSHx: Knee Replacement; Cataract Surgery; Prostatectomy; Rotator Cuff; - Tetanus: < 10 years. - Ebola Screening: : Patient negative for fever greater than or equal to 101.5 degrees Fahrenheit, and additional compatible Ebola Virus Disease symptoms. Patient denies exposure to infectious person. Patient denies travel to an Ebola-affected area in the 21 days before illness onset. . - Immunization history: Pneumococcal vaccine is up to date, Flu Vaccine < 1 year. - Social history: Smoking status: Patient states was never smoker of tobacco. Screenin:00 Infectious Disease Risk None. Abuse screen: Denies threats or abuse. Denies injuries lp from another. Nutritional screening: No deficits noted. Assessment: 13:00 See Triage Assessment done by same RN. lp Vital Signs: 12:59 BP 95 / 65; Pulse 73; Resp 16; Temp 96.8(TE); Pulse Ox 97% on R/A; Weight 99.79 kg; lp Height 6 ft. 2 in. (187.96 cm); Pain 6/10; 13:01 BP 100 / 61 (auto/); lp 13:04 Pulse Ox 95% ; lp 14:00 BP 111 / 69 (auto/); lp 14:04 Pulse Ox 96% ; lp 16:00 BP 103 / 77; Pulse 83; Resp 16; Pulse Ox 93% on R/A; lp 16:37 BP 107 / 73; Pulse 86; Resp 16; Pulse Ox 94% on R/A; lp 12:59 Body Mass Index 28.25 (99.79 kg, 187.96 cm) lp ED Course: 12:38 Patient arrived in ED. jl 12:41 Lisa Gongora, NICOLAS is Primary Nurse. lp 12:43 Triage completed. lp 12:49 Zurdo Jarvis MD is Attending Physician. tl1 13:[address] Jarvis notified. lp 13:00 Valuables Remains with patient Patient has correct armband on for positive lp identification. Bed in low position. Call light in reach. 13:00 Inserted peripheral IV: 20 gauge in left hand. lp 14:17 Discontinued IV bleeding controlled, L hand IV not working. Inserted peripheral IV: 22 lp gauge in left forearm. 14:18 Door closed. Incontinence care. lp 15:25 Sugar tong splint applied on right arm. Sling applied to right arm. 16:30 Wilner Sheets MD is Admitting Physician. tl1 Administered Medications: 14:17 Drug: fentaNYL (PF) 100 mcg; Route: IVP; Infused Over: 3 mins; Site: left forearm; lp 15:09 Follow up: Response: Pain is decreased lp 14:19 Drug: NS 0.9% 1000 ml; Route: IV; Rate: bolus; Site: left forearm; lp 15:07 Follow up: Response: No adverse reaction; No change in condition; IV Status: Completed lp infusion; IV Intake: 1000ml Intake: 15:07 IV: 1000ml; Total: 1000ml. lp Outcome: 16:31 Decision to Admit by Provider. tl1 17:56 Admitted to Med/surg accompanied by nurse. lp 17:56 Condition: stable 17:56 Report given to Jolly VALENZUELA 17:57 Instructed on lp 17:57 Instructed on need to admit 17:57 Patient left the ED. lp Signatures: Lisa Gongora, RN RN Zurdo Lind MD MD tl1 Wilda Bearden Tj Ayala, Robson beck
--- NOTE | 2016-09-05 07:49 | ER PHYSICIAN DOCUMENTATION ---
Physician Documentation [facility] Name:Jim Hoover Age:76 yrs Sex:Male :1940 Arrival Date:08/30/2016 Time:12:37 Bed6 Private MD: Zurdo Diamond Disposition: 09/01 07:55 Chart complete. tl1 Disposition: 08/30/16 16:31 Admit ordered for Wilner Sheets. Preliminary diagnosis is Low Humerus Fracture. - Bed requested for Medical/Surgical. - Condition is Good. - Problem is new. - Symptoms have improved. 23 HR OBS No HPI: 08/30 12:44 This 76 yrs old Male presents to ER via EMS with complaints of Fall Injury - tl1 RIGHT ARM. 12:44 Details of fall: The patient fell from a height, down approximately 14 stairs. Onset: tl1 The symptom(s)/episode began/occurred suddenly, just prior to arrival. Associated injuries: The patient sustained right bicep, deformity, obvious fracture. 13:23 He had started walking down indoor stairs, when his dog came down after him and pushed tl1 him forward. He hit the landing and managed to keep falling down as the stairs took a right angle turn. He injured his right humerus and thinks he broke it in 2 places. He denies any h/a or head pain, but thinks he must have hit his head. Denies neck, chest, back, abdominal or any other pain. Does take coumadin fro chronic A fib.. Historical: - Allergies: Bactrim; Dilaudid; [place] Carbonate; Morphine; Oxycodone HCl; PENICILLINS; Prozac; SHELLFISH; - Home Meds: 1. Diflucan 100 mg oral tab 1 tab twice a day 2. nystatin 100,000 unit/gram topical powd 3. tramadol 50 mg oral tab 2 tabs every 6 hours for Neuropathic Pain 4. metformin 500 mg oral tab 1 tab 2 times per day with morning and evening meals 5. olmesartan-hydrochlorothiazide 40-25 mg oral tab 1 tab once daily for Hypertension 6. fenofibrate 160 mg oral tab 1 tab once daily 7. Bystolic 10 mg oral tab 1 tab once daily 8. Klor-Con 10 10 mEq oral TbER 1 tab once daily for Hypokalemia Prevention 9. lamotrigine 200 mg oral tab 1 tab once daily 10. allopurinol 300 mg oral tab 1 tab once daily 11. Wellbutrin XL 150 mg oral Tb24 1 tab once daily - PMHx: CHOLELITHIASIS; Diabetes - NIDDM; Prostate Cancer; TIA; ATRIAL FIB; Chronic Hypokalemia; Obstructive Sleep Apnea; Hyperlipidemia; Hypertension; GOUT; DEPRESSION; BPH; BIPOLAR DISORDER; Morbid Obesity; ANEMIA; Gait Instability; - PSHx: Knee Replacement; Cataract Surgery; Prostatectomy; Rotator Cuff; - Tetanus: < 10 years. - Ebola Screening: : Patient negative for fever greater than or equal to 101.5 degrees Fahrenheit, and additional compatible Ebola Virus Disease symptoms. Patient denies exposure to infectious person. Patient denies travel to an Ebola-affected area in the 21 days before illness onset. . - Immunization history: Pneumococcal vaccine is up to date, Flu Vaccine < 1 year. - Social history: Smoking status: Patient states was never smoker of tobacco. ROS: 13:40 Constitutional: Negative for fatigue, malaise. tl1 13:40 Neuro: Negative for headache, loss of consciousness, syncope. Exam: 13:00 Constitutional: The patient appears alert, awake, well developed, well hydrated, well tl1 groomed, well nourished, in obvious distress, mildly distressed, in obvious pain, uncomfortable. 13:00 Head/Face: Normocephalic, atraumatic. tl1 13:00 ENT: Nares patent. No nasal discharge, no septal abnormalities noted. Tympanic tl1 membranes are normal and external auditory canals are clear. Oropharynx with no redness, swelling, or masses, exudates, or evidence of obstruction, uvula midline. Mucous membranes moist. 13:00 Neck: External neck: is normal, C-spine: appears grossly normal, vertebral tenderness, is not appreciated, ROM/movement: is normal. 13:00 Chest/axilla: Palpation: tenderness, is not appreciated. 13:00 Cardiovascular: Rate: normal, Rhythm: regular, Heart sounds: normal, Edema: is not appreciated. 13:00 Respiratory: the patient does not display signs of respiratory distress, Respirations: normal, Breath sounds: are normal. 13:00 Abdomen/GI: Inspection: abdomen appears normal, Palpation: abdomen is soft and non-tender. 13:00 Back: CVA tenderness, is absent. 13:00 Musculoskeletal/extremity: Extremities: grossly normal except: noted in the right upper arm: decreased ROM, deformity, pain, swelling, tenderness, Right upper arm shows a lower humeral deformity; apex anterior angulation of the distal humerus with TTP and swelling there. Shoulder and elbow are both NTTP. Distal neurovascular exam is normal.. 13:00 Skin: Exam negative for acute changes. 13:00 Neuro: Orientation: is normal, Mentation: is normal, Memory: is normal, Cranial nerves: grossly normal, Motor: moves all fours, Sensation: light touch sense is normal. Vital Signs: 12:59 BP 95 / 65; Pulse 73; Resp 16; Temp 96.8(TE); Pulse Ox 97% on R/A; Weight 99.79 kg; lp Height 6 ft. 2 in. (187.96 cm); Pain 6/10; 13:01 BP 100 / 61 (auto/); lp 13:04 Pulse Ox 95% ; lp 14:00 BP 111 / 69 (auto/); lp 14:04 Pulse Ox 96% ; lp 16:00 BP 103 / 77; Pulse 83; Resp 16; Pulse Ox 93% on R/A; lp 16:37 BP 107 / 73; Pulse 86; Resp 16; Pulse Ox 94% on R/A; lp 12:59 Body Mass Index 28.25 (99.79 kg, 187.96 cm) lp MDM: 12:49 Patient medically screened. tl1 13:06 Patient medically screened. tl1 15:00 Data reviewed: vital signs, nurses notes, lab test result(s), radiologic studies, and tl1 as a result, I will admit patient. Test interpretation: by ED physician or midlevel provider: plain radiologic studies. Counseling: I had a detailed discussion with the patient and/or guardian regarding: the historical points, exam findings, and any diagnostic results supporting the discharge/admit diagnosis, radiology results, the need for further work-up and treatment in the hospital. Physician consultation: Fredy Anderson DO was called at 15:00, was contacted at 15:00, regarding patient's condition, need to come to ED to see patient, and will see patient in ED, shortly. Special discussion: Per his own account and Dr Sheets's records, he has been falling a lot at home lately. He is not safe at home with 2 good arms and I think he is very unsafe with one of them broken. I think it is best to admit him for pain control. He was seen in the ED by Dr Anderson, who has treated him in the past, who placed him in a coaptation splint.. ED course: He was stable. Pain was well controlled with fentanyl and he was splinted by Dr Anderson.. 08/30 13:57 Order name: CAT SCAN; HEAD W/O CON [id number]; Complete Time: 14:16 EDMS 08/30 16:29 Interpretation: age related ischemic changes. NAD. See radiologist report. tl1 08/30 15:25 Order name: ORTHO: Sling; Complete Time: 15:26 rh 08/30 15:26 Order name: ORTHO: Splint; Complete Time: 15:26 rh Dispensed Medications: 14:17 Drug: fentaNYL (PF) 100 mcg; Route: IVP; Infused Over: 3 mins; Site: left forearm; lp 15:09 Follow up: Response: Pain is decreased lp 14:19 Drug: NS 0.9% 1000 ml; Route: IV; Rate: bolus; Site: left forearm; lp 15:07 Follow up: Response: No adverse reaction; No change in condition; IV Status: Completed lp infusion; IV Intake: 1000ml Signatures: Lisa Gongora RN RN Zurdo Jarvis MD MD 1 Wilda Bearden
== END 2016-09-01 12:20 | disposition home or self-care (01) ==
LOC: ER 12:45 → IN 17:51
PROVIDERS: ADMIT Family Medicine; ATTEND Family Medicine
DX: S42.351A Displaced comminuted fracture of shaft of humerus, right arm, initial encounter for closed fracture (principal); W10.8XXA Fall (on) (from) other stairs and steps, initial encounter; I10 Essential (primary) hypertension; E78.5 Hyperlipidemia, unspecified; M10.9 Gout, unspecified; M48.06 Spinal stenosis, lumbar region; Z86.73 Personal history of transient ischemic attack (TIA), and cerebral infarction without residual deficits; G47.33 Obstructive sleep apnea (adult) (pediatric); I48.2 Chronic atrial fibrillation; C61 Malignant neoplasm of prostate; F31.9 Bipolar disorder, unspecified; E11.9 Type 2 diabetes mellitus without complications; E03.9 Hypothyroidism, unspecified; E83.42 Hypomagnesemia; Z85.828 Personal history of other malignant neoplasm of skin; M15.9 Polyosteoarthritis, unspecified; F32.9 Major depressive disorder, single episode, unspecified; M54.5 Low back pain; R26.81 Unsteadiness on feet; E66.01 Morbid (severe) obesity due to excess calories; Z79.01 Long term (current) use of anticoagulants; Z79.899 Other long term (current) drug therapy; Z74.3 Need for continuous supervision
CPT/HCPCS: 24505; 70450; 73060; 76000; 80053; 85025; 85610; 93005; 96372; 99217; 99220; 99282; 99283; A0425; A0427; G0378; G8984; G8985; J1815; J2405; J2550; J3010; J7030; J7120

== ENCOUNTER 2016-09-08 14:25 | Emergency (ER) | payer MEDICARE, BC ==
--- NOTE | 2016-09-08 15:33 | RADIOLOGY REPORT ---
HISTORY: New trauma with history of right humerus fracture. COMPARISON: August 30, 2016 right humerus radiographs FINDINGS: AP and lateral right humerus radiographs again reveal a significant displaced comminuted fracture thr ough the distal humeral diaphysis. The major distal fracture fragment is displaced 1.5 shaft width's anterior. No obvious new acute fracture is seen. No osseous masses are identified. IMPRESSION: No significant interval change in the significant displaced comminuted fracture through the distal hu meral diaphysis. Final Electronic Signature: This report was electronically signed by Linwood Haines MD on 017 3:31 PM. dasia /
--- NOTE | 2016-09-08 15:50 | ER PHYSICIAN DOCUMENTATION ---
Physician Documentation [facility] Name:Jim Hoover Age:76 yrs Sex:Male :1940 Arrival Date:09/08/2016 Time:14:25 Bed6 Private MD:Wilner Sheets ED, John Disposition: 09/08/16 14:39 Discharged to Home/Self Care. Impression: Shoulder Injury. - Condition is Good. - Discharge Instructions: SHOULDER CONTUSION, SHOULDER PAIN (Uncertain Cause). - Medical Reconciliation form form. - Follow up: Private Physician; When: As needed; Reason: Continuance of care. - Problem is new. - Symptoms have improved. HPI: 09/08 15:11 This 76 yrs old Male presents to ER via EMS with complaints of Fall Injury. jm 15:11 Details of fall: The patient fell from an upright position. Onset: The jm symptom(s)/episode began/occurred just prior to arrival. Associated injuries: The patient sustained right arm. Pt w known distal humeral shaft fx and he bumped it on the way down when he fell. It's casted, but he had some pain with it, so he came in by ambulance. He sees Dr. Anderson tomorrow. Historical: - Allergies: Prozac; PENICILLINS; Bactrim; Morphine; Oxycodone HCl; [place] Carbonate; Prozac; SHELLFISH; Dilaudid; - Home Meds: 1. fenofibrate 160 mg oral tab 1 tab once daily 2. Klor-Con 10 10 mEq oral TbER 1 tab once daily for Hypokalemia Prevention 3. liothyronine 50 mcg oral tab 2 tabs once daily, twice a day 4. Lotrel 10-20 mg oral cap once daily for Hypertension 5. Coumadin 5 mg oral tab 1 tab once daily 6. 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 daptomycin 8. minocycline 100 mg oral cap 1 cap 9. Ultram 50 mg oral tab 1 tab every 6 hours as needed for Pain 10. lamotrigine 200 mg oral tr24 1 tab once daily 11. Bystolic 10 mg oral tab 1 tab once daily 12. allopurinol 300 mg oral tab 1 tab once daily 13. Wellbutrin XL 150 mg oral Tb24 2 tabs once daily 14. Plavix 75 mg oral tab 1 tab once daily 15. Benicar HCT 40-25 mg oral tab 1 tab once daily 16. Pristiq 100 mg oral Tb24 1 tab once daily - PMHx: BIPOLAR DISORDER; HYPERTENSION; CANCER, PROSTATE; VAGUS NERVE STIMULATOR; BPH; OSTEOARTHRITIS; actinic keratosis; HYPERTENSION; ATRIAL FIB; GOUT; TIA; DEPRESSION; Hyperlipidemia; Diabetes Mellitus; Prostate Cancer; Staphylococcus aureus sepsis; Chronic Hypokalemia; Squamos cell carcinoma; - PSHx: prostatectomy; left knee replacement; Bilateral cataract surgery; - Tetanus: < 10 years. - Ebola Screening: : Patient negative for fever greater than or equal to 101.5 degrees Fahrenheit, and additional compatible Ebola Virus Disease symptoms. - Immunization history: Flu Vaccine < 1 year. - Social history: Smoking status: Patient states was never smoker of tobacco. ROS: 15:13 MS/extremity: Positive for injury or acute deformity, tenderness. jm 15:13 Skin: Positive for swelling. Exam: 15:13 Constitutional: The patient appears alert, awake. jm 15:13 Musculoskeletal/extremity: Extremities: noted in the right arm: pt in cast, but cast is intact after fall. , Pulses: are normal with no appreciated deficits, Sensation intact. 15:13 Neuro: Mentation: is normal, appropriate for stated age, Memory: is normal, Sensation: is normal. Vital Signs: 14:34 BP 107 / 72; Pulse 87; Resp 16; Temp 98.9(O); Pulse Ox 96% on R/A; Weight 99.79 kg; rh Height 6 ft. 2 in. (187.96 cm); Pain 0/10; 14:34 Body Mass Index 28.25 (99.79 kg, 187.96 cm) rh MDM: 14:26 Patient medically screened. jm 15:13 Differential diagnosis: contusion, fracture. Data reviewed: vital signs, nurses notes, jm and as a result, I will discharge patient. Test interpretation: by ED physician or midlevel provider: plain radiologic studies. Counseling: I had a detailed discussion with the patient and/or guardian regarding: the historical points, exam findings, and any diagnostic results supporting the discharge/admit diagnosis. Counseling: I had a detailed discussion with the patient and/or guardian regarding: the need for outpatient follow up, a orthopedic surgeon. 18:00 ED course: Still a fx noted. No movement of the fx plane. . lydia 09/08 15:37 Order name: [place] [id number] EDMS Dispensed Medications: No medications were administered Signatures: Wilfrid Solitario MD MD jm Hofsess, Rachel
--- NOTE | 2016-09-08 15:50 | ER NURSING DOCUMENTATION ---
Nurse's Notes [facility] Name:Jim Hoover Age:76 yrs Sex:Male :1940 Arrival Date:09/08/2016 Time:14:25 Bed6 Private MD:Wilner Sheets Diagnosis:Shoulder Injury Presentation: 09/08 14:28 Acuity: ARCADIO 4 rh 14:29 Presenting complaint: Patient states: Pt was standing up out of his recliner, his back rh gave out and his collapsed, onto the ground. Pt did not hit his head or lose LOC. Pt has R arm in a cast currently and would like the arm checked out. No pain. Transition of care: Home. 14:29 Method Of Arrival: EMS: 410 rh Triage Assessment: 14:33 General: Appears in no apparent distress, Behavior is cooperative. Pain: Denies pain. rh EENT: Oral mucosa is moist. Neuro: Level of Consciousness is awake, alert, obeys commands, Oriented to person, place, time, event. Cardiovascular: Capillary refill < 3 seconds Chest pain is denied. Respiratory: Airway is patent Respiratory effort is even, unlabored, Respiratory pattern is regular, symmetrical. GI: Abdomen is non- distended Denies nausea. : No deficits noted. Derm: Skin is intact, is healthy with good turgor, Skin is pink, warm & dry. Historical: - Allergies: Prozac; PENICILLINS; Bactrim; Morphine; Oxycodone HCl; [place] Carbonate; Prozac; SHELLFISH; Dilaudid; - Home Meds: 1. fenofibrate 160 mg oral tab 1 tab once daily 2. Klor-Con 10 10 mEq oral TbER 1 tab once daily for Hypokalemia Prevention 3. liothyronine 50 mcg oral tab 2 tabs once daily, twice a day 4. Lotrel 10-20 mg oral cap once daily for Hypertension 5. Coumadin 5 mg oral tab 1 tab once daily 6. 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 daptomycin 8. minocycline 100 mg oral cap 1 cap 9. Ultram 50 mg oral tab 1 tab every 6 hours as needed for Pain 10. lamotrigine 200 mg oral tr24 1 tab once daily 11. Bystolic 10 mg oral tab 1 tab once daily 12. allopurinol 300 mg oral tab 1 tab once daily 13. Wellbutrin XL 150 mg oral Tb24 2 tabs once daily 14. Plavix 75 mg oral tab 1 tab once daily 15. Benicar HCT 40-25 mg oral tab 1 tab once daily 16. Pristiq 100 mg oral Tb24 1 tab once daily - PMHx: BIPOLAR DISORDER; HYPERTENSION; CANCER, PROSTATE; VAGUS NERVE STIMULATOR; BPH; OSTEOARTHRITIS; actinic keratosis; HYPERTENSION; ATRIAL FIB; GOUT; TIA; DEPRESSION; Hyperlipidemia; Diabetes Mellitus; Prostate Cancer; Staphylococcus aureus sepsis; Chronic Hypokalemia; Squamos cell carcinoma; - PSHx: prostatectomy; left knee replacement; Bilateral cataract surgery; - Tetanus: < 10 years. - Ebola Screening: : Patient negative for fever greater than or equal to 101.5 degrees Fahrenheit, and additional compatible Ebola Virus Disease symptoms. - Immunization history: Flu Vaccine < 1 year. - Social history: Smoking status: Patient states was never smoker of tobacco. Screenin:36 Infectious Disease Risk None. Abuse screen: Denies threats or abuse. Denies injuries rh from another. Nutritional screening: No deficits noted. Assessment: 14:36 See Triage Assessment done by same RN. Vital Signs: 14:34 BP 107 / 72; Pulse 87; Resp 16; Temp 98.9(O); Pulse Ox 96% on R/A; Weight 99.79 kg; rh Height 6 ft. 2 in. (187.96 cm); Pain 0/10; 14:34 Body Mass Index 28.25 (99.79 kg, 187.96 cm) rh ED Course: 14:25 Patient arrived in ED. ama 14:25 Wilner Sheets MD is Private Physician. ama 14:26 Wilfrid Solitario MD is Attending Physician. 14:28 Wilda Bearden is Primary Nurse. 14:28 Triage completed. 14:36 Notified ED Physician of patient's arrival and chief complaint. Dr. Solitario notified. 14:36 Valuables Remains with patient Patient has correct armband on for positive rh identification. Bed in low position. Call light in reach. Side rails up X 1. Administered Medications: No medications were administered Outcome: 14:39 Discharge ordered by . 15:49 Discharged to home via wheelchair, with family. 15:49 Condition: improved 15:49 Discharge Assessment: Patient awake, alert and oriented x 3. No cognitive and/or functional deficits noted. Patient verbalized understanding of disposition instructions. 15:49 Discharge instructions given to patient, significant other, Instructed on discharge instructions, follow up and referral plans. Demonstrated understanding of instructions. 15:49 Patient left the ED. Signatures: Wilfrid Solitario MD MD jm Averdick, Andrew, Reg Reg ama Hofsess, Rachel
== END 2016-09-08 15:50 | disposition home or self-care (01) ==
LOC: ER 14:25
DX: S49.81XA Other specified injuries of right shoulder and upper arm, initial encounter (principal); W19.XXXA Unspecified fall, initial encounter; Y92.019 Unspecified place in single-family (private) house as the place of occurrence of the external cause; S42.401D Unspecified fracture of lower end of right humerus, subsequent encounter for fracture with routine healing; I10 Essential (primary) hypertension; I48.91 Unspecified atrial fibrillation; Z79.01 Long term (current) use of anticoagulants; Z79.899 Other long term (current) drug therapy; Z74.3 Need for continuous supervision
CPT/HCPCS: 99283; A0425; A0429

== ENCOUNTER 2016-09-10 12:47 | Inpatient (IN) | payer MEDICARE, BC ==
[2016-09-10 13:33] LABS: INR 2.6
--- NOTE | 2016-09-10 13:41 | CT REPORT ---
HISTORY: Status post fall with injury to back of head. Comparison: 08/30/2016. TECHNIQUE: Axial non-contrast images obtained from skull vertex through foramen magnum. Dose reduction technique was utilized. FINDINGS: The ventricles, sulci and cisterns are prominent, suggesting age-related tissue loss. Extensive low-a ttenuation in the periventricular and subcortical white matter appears stable. There is no intra-axia l hemorrhage, mass, midline shift or large vessel acute territorial infarct. There is no extra axial fluid collection. The globes are intact. The paranasal sinuses appear clear. The mastoids appear well aerated. The bone s and soft tissues appear unremarkable. IMPRESSION: Atrophy and multifocal white matter changes, stable, likely reflecting sequela of small vessel ischem ic disease. No evidence of acute intracranial hemorrhage, skull fracture, or large vessel acute territorial infar ct. Final Electronic Signature: This report was electronically signed by Link Tsang MD on 09/11/19 17 1:39 PM. nat /
--- NOTE | 2016-09-10 13:43 | CT REPORT ---
HISTORY: Status post fall. COMPARISON: None. TECHNIQUE: This examination was performed using automated exposure control, adjustment of mA or kV according to patient size, and/or use of iterative reconstruction technique. Axial thin section images obtained f rom skull base through head of the clavicles. Sagittal and coronal reformat images obtained. FINDINGS: The vertebral body height and alignment is well maintained. There is no acute fracture or dislocation . The prevertebral soft tissues appear unremarkable. The visualized ribs are intact. There is no evid ence of spinous process or transverse process fracture. There is multilevel loss of intervertebral disc space height throughout the cervical spine, most valentin rely affecting C3-C4 and C5-C6, without significant neural foraminal narrowing. Moderate to severe fa cet arthropathy is noted diffusely, and there are moderate degenerative changes noted in the atlantod ental interface. The skull base structures appear unremarkable. The visualized lungs are clear. IMPRESSION: Moderate to severe cervical spine degenerative changes. In the setting of persistent neck pain, MRI o f the cervical spine is of increased sensitivity for occult ligamentous injury. No evidence of acute cervical spine fracture or dislocation. Final Electronic Signature: This report was electronically signed by Link Tsang MD on 09/11/19 17 1:41 PM. rosalio /
[2016-09-10 13:44] LABS: RED BLOOD COUNT 4.76 X 10^6uL (4.20-6.10); WHITE BLOOD COUNT 10.2 X 10^3uL (3.9-10.7)
[2016-09-10 13:45] LABS: BASOPHILS 0.7 % (0.0-2.0); EOSINOPHILS 2.6 % (0.0-6.0); EOSINOPHILS# 0.3 X 10^3uL (0.0-0.4); HEMATOCRIT 46.1 % (42.0-54.0); HEMOGLOBIN 15.7 g/dL (14.0-18.0); LYMPHOCYTES 18.8 % (20.0-40.0); LYMPHOCYTES# 1.9 X 10^3uL (0.8-3.8); MEAN CORPUS. HGB CONCENTRATION 34.1 g/dL (32.0-36.0); MEAN PLATELET VOLUME 8.6 fL (7.4-10.4); MONOCYTES 9.3 % (2.0-10.0); NEUTROPHILS 68.6 % (54.0-75.0); PLATELET COUNT 331 X 10^3uL (130-440); RED CELL DISTRIBUTION WIDTH 13.1 % (11.5-14.5)
[2016-09-10 13:46] LABS: BASOPHIL# 0.1 X 10^3uL (0.0-0.1)
--- NOTE | 2016-09-10 13:46 | RADIOLOGY REPORT ---
HISTORY: Status post fall. COMPARISON: None. FINDINGS: 1 view of the chest was performed. There is a spinal stimulator in the left chest. The lungs are clear well inflated. There is no evidence of pneumonia or pulmonary edema. There is no evidence of pleural effusion or pneumothorax. The heart is not enlarged. The bones appear unremarkable. IMPRESSION: No evidence of pneumonia or pulmonary edema. Final Electronic Signature: This report was electronically signed by Link Tsang MD on 09/11/19 17 1:44 PM. rosalio /
[2016-09-10] MEDS ORDERED: LIDOCAINE/EPI 2% 1:200,000 10 ML VIAL ONE (14:10)
[2016-09-10 14:33] LABS: ALBUMIN 4.1 g/dL (3.5-5.0); ALKALINE PHOSPHATASE 62 U/L (38-126); ALT 34 U/L (21-72); AST 28 U/L (17-59); BILIRUBIN, DIRECT 0.6 mg/dL (0.0-0.4); BILIRUBIN, TOTAL 1.3 mg/dL (0.2-1.3); BLOOD UREA NITROGEN 18 mg/dL (9-20); CALCIUM 9.5 mg/dL (8.4-10.2); CHLORIDE 97 mmol/L (98-107); EST GLOMERULAR FILTRATION RATE > 60 mL/min; GLUCOSE 154 mg/dL (70-100); LIPASE 24 U/L (23-300); MAGNESIUM 1.8 mg/dL (1.6-2.3); POTASSIUM 3.5 mmol/L (3.5-5.1); SODIUM 136 mmol/L (137-145)
[2016-09-10 14:34] LABS: ETHYL ALCOHOL < 10 mg/dL (<10)
[2016-09-10 14:45] LABS: TROPONIN I < 0.012 ng/mL (0.00-0.034)
--- NOTE | 2016-09-10 15:00 | HISTORY AND PHYSICAL ---
PROVIDER: Date of Admission: Admitting Provider: Attending Provider: Primary Care Provider: CHIEF COMPLAINT: Admitted for gait instability fall and head injury HISTORY OF PRESENT ILLNESS: This is a 76-year-old gentleman with past medical history significant for bipolar [address] Omalley and Dr. Wallace with a vagal nerve stimulator. He also has a history of lumbar spine stenosis in gait instability related to weakness and sensory changes. He also has comorbid prostate cancer sleep apnea on CPAP and diabetes as well as gout, hypertension and dyslipidemia. He also recently was diagnosed with atrial fibrillation and takes anticoagulation with Coumadin. Today while his went shopping he was to remain in his lazy boy chair until her return but because of commotion outside he attempted to investigate and sustained a fall and head injury with an occipital laceration. In the emergency room he underwent CT head and CT spine with no acute bleeding or deformity but chronic degenerative changes. His laceration was opposed with merrill. And his mentation is at baseline with some confusion. I discussed with he and his possibilities of remaining hospital for swing bed or PP for half-way versus home with alf care via [facility] or [facility] as further falls on anticoagulation could be devastating. His mobility is limited as a consequence to his fractured right arm and inability to utilize a walker. He has no fever no cough cold congestion no chest pain palpitations or shortness of breath no nausea vomiting abdominal pain diarrhea or constipation no dysuria no frequency. PAST MEDICAL HISTORY: Past history: atrial fibrillation diagnosed [address] Mcclain managed with rate control Bystolic 10 mg 2 tablets daily and Coumadin anisocoria the right eye bipolar 1 with vagal nerve stimulator [address] Omalley and Dr. Wallace prostate cancer status post robotic assisted prostatectomy 2009 Dr. Riggins cholelithiasis lumbar spine stenosis (pending surgery with dr. 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 [employer] patient is a lifelong non-smoker FAMILY HISTORY: Father age 78 from stroke and had hypertension mother age 93 from diabetes s ister has glaucoma second sister had Alzheimer's and a stroke and a third sister has ulcerative colitis MEDICATIONS: Vitamin D 2000 international units daily liothyronine 50 mcg 2 tablets twice daily Coumadin 2-1/2 mg daily Norvasc/benazepril 10/20 mg 1 tablet daily Fetzima 40 mg daily Abilify 1 mg daily minocycline 100 mg daily nystatin powder applied topically to candidiasis 4 times daily metformin 500 mg twice daily olmesartan/hydrochlorothiazide 40/25 milligrams tablets 1 tablet daily Bystolic 10 mg tablets 2 tablets daily fenofibrate 160 mg 1 tablet nightly Klor-Con 10 mEq daily lamotrigine 200 mg daily allopurinol 300 mg daily Wellbutrin 150 mg 2 tablets daily ALLERGIES: Bactrim Dilaudid lithium morphine oxycodone penicillin Prozac shellfish VITAL SIGNS: Blood pressure 134/111 and recheck 106/74 pulse 94 temperature 98.5 pulse oximetry 95% on room air blister rate 14 weight 99.8 kg PHYSICAL EXAMINATION: Pleasant no apparent distress but covered with coagulated blood in his hair and vomited cherries over his clothing no jaundice anemia cyanosis clubbing or lymphadenopathy neck is supple no masses or bruits appreciated right eye anisocoria extraocular movements intact laceration on occiput stapled and opposed cardiac exam irregular rhythm no adventitial murmurs noted resp exam clear to auscultation abdomen protuberant nontender no masses present bowel sounds active extremities scar over left knee from arthroplasty power tone DTRs all symmetric and present 2+ dorsal pedal pulses and decreased touch sensation over his feet LABORATORY: INR 2.6 CBC White count 10.2 hemoglobin 15.7 MCV 97 platelet count 331 neutrophil percentage 69% lymphocytes 19% sodium 136 with potassium 3.5 chloride 97 bicarb 25 glucose 154 BUN 18 creatinine of 1 calcium 9.5 magnesium 1.8 liver function ALT 34 AST 28 albumin 4.1 alk phos 62 bilirubin 1.3 lipase 24 ethyl alcohol less than 10 troponin less than 0.012 IMAGING: EKG Afib CTH: no mass/bleed CT Neck: DJD no fracture Assessment and Plan - Date of Encounter Date of Encounter: 09/10/16 (1) Fall Status: Acute Qualifiers: Encounter type: initial encounter Qualified Code(s): W19.XXXA - Unspecified fall, initial encounter Assessment and plan: Multiple recent falls, likely related to sensory and motor issues from spinal stenosis. Humerus fracture related to fall and now head injury with laceration. Anticoagulated. Very high risk for fall and devastating injury prior to being able to have back surgery and high risk to reinjure right arm. PT/OT and consideration of [facility]/Swing[facility] or [facility] care. Liase with Dr Sheets and Care Management on Monday. CT negative. Current Visit: Yes (2) Humerus distal fracture Status: Acute Qualifiers: Encounter type: subsequent encounter Fracture type: closed Fracture alignment: nondisplaced Laterality: right Assessment and plan: seen 09/09 by orthopedics, may need revisit during this hospitalization, unfortunately this precludes use of even a platform walker. Current Visit: No (3) Atrial fibrillation, controlled Status: Chronic Assessment and plan: rate controlled and taking adequate anti coagulation Current Visit: No (4) Bipolar 1 disorder Status: Chronic Assessment and plan: well controlled on usual meds, memory/confusion issue possibly from fall and head injury, may request nursing to perform MoCA Current Visit: No (5) Diabetes mellitus Status: Chronic Qualifiers: Diabetes mellitus type: type 2 Current Visit: No (6) Gait instability Status: Chronic Assessment and plan: related to spinal stenosis and with elevated MCV concern for B12 deficiency as well Current Visit: No (7) Hypertension, benign Status: Chronic Current Visit: No (8) Hypothyroidism, acquired Status: Chronic Current Visit: No - Time Spent With Patient Total time spent with greater than 50% in coordination of care (as documented) at patient's floor/unit and/or counseling patient: Greater than 35 minutes
[2016-09-10] MEDS ORDERED: MAG-AL PLUS XS SUSP 30 ML UDC PO PRN (15:23)
[2016-09-10] MEDS ORDERED: HOME MEDICATION LIST NEEDED 1 EA EACH MC ONE (15:23)
[2016-09-10] MEDS ORDERED: ACETAMINOPHEN 325 MG TABLET PO PRN (15:23)
[2016-09-10] MEDS ORDERED: POLYETHYLENE GLYCOL 3350 17 GM POWD.PACK PO PRN (15:23)
--- NOTE | 2016-09-10 16:05 | ER PHYSICIAN DOCUMENTATION ---
Physician Documentation [facility] Name:Jim Hooevr Age:76 yrs Sex:Male :1940 Arrival Date:09/10/2016 Time:12:47 Bed4 Private MD:Wilner Sheets ED, Chris Disposition: 09/10 14:22 Chart complete. cd Disposition: 09/10/16 14:22 Admit ordered for Estuardo Emerson. Preliminary diagnosis are Head Injury, Head Laceration - : 2 cm; Simple closure with merrill (by MD), Fall - : Recurrent, Low Humerus Fracture - : 11 days ago, Nausea. - Bed requested for Medical/Surgical. - Condition is Fair. - Problem is an ongoing problem. - Symptoms have improved. 23 HR OBS No HPI: 13:01 This 76 yrs old Male presents to ER with complaints of Fall Injury. cd 13:01 Details of fall: The patient fell from an upright position, while walking. Onset: The cd symptom(s)/episode began/occurred acutely, just prior to arrival. Associated injuries: The patient sustained injury to the head, contusion, laceration. Associated signs and symptoms: Pertinent positives: headache, memory problems, nausea, vomiting, Pertinent negatives: abdominal pain, chest pain, incontinence, numbness, shortness of breath, seizure, Loss of consciousness: the patient experienced no loss of consciousness. Severity of symptoms: At their worst the symptoms were moderate, in the emergency department the symptoms have improved, moderately. The patient has experienced a previous episode, approximately 2 days ago, Patient has had a problem with recurrent falls. He fell two days ago and fractured his mid humerus. He is now in a special splint. He is on Coumadin for Atrial Fibrillation. The patient denies chest pain, SOB, dizziness, lightheadedness, facial droop, speech problems or weakness in the extremities before the fall. He cannot say for sure if it were a mechanical fall or if he had syncope, then fell into the wall. He does not think he lost consciousness. He vomited upon arrival to [facility]. He was given Zofran SL which abated the nausea. He has an NHISS Score = 0 on arrival and a GCS = 15. No recent chest pain, cough, SOB, abdominal pain, melena, UTI symptoms, fever or chills.. 14:55 The patient has fallen a total of 6 times since August 302016. He is at high risk cd for recurrent falls and high risk being on Coumadin. He will likely need admission to [facility] on Swing bed status for PT and rehabilitation. . Historical: - Allergies: Prozac; PENICILLINS; Bactrim; Morphine; Oxycodone HCl; Emet Carbonate; Prozac; SHELLFISH; Dilaudid; - Home Meds: 1. fenofibrate 160 mg oral tab 1 tab once daily 2. Klor-Con 10 10 mEq oral TbER 1 tab once daily for Hypokalemia Prevention 3. liothyronine 50 mcg oral tab 2 tabs once daily, twice a day 4. Lotrel 10-20 mg oral cap once daily for Hypertension 5. Coumadin 5 mg oral tab 1 tab once daily 6. 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 daptomycin IV 8. minocycline 100 mg oral cap 1 cap 9. Ultram 50 mg oral tab 1 tab every 6 hours as needed for Pain 10. lamotrigine 200 mg oral tr24 1 tab once daily 11. Bystolic 10 mg oral tab 1 tab once daily 12. allopurinol 300 mg oral tab 1 tab once daily 13. Wellbutrin XL 150 mg oral Tb24 2 tabs once daily 14. Plavix 75 mg oral tab 1 tab once daily 15. Benicar HCT 40-25 mg oral tab 1 tab once daily 16. Pristiq 100 mg oral Tb24 1 tab once daily - PMHx: BIPOLAR DISORDER; HYPERTENSION; CANCER, PROSTATE; VAGUS NERVE STIMULATOR; BPH; OSTEOARTHRITIS; actinic keratosis; HYPERTENSION; ATRIAL FIB; GOUT; TIA; DEPRESSION; Hyperlipidemia; Diabetes Mellitus; Prostate Cancer; Staphylococcus aureus sepsis; Chronic Hypokalemia; Squamos cell carcinoma; Shoulder Injury (September 08, 2016); - Tetanus: < 10 years. - Ebola Screening: : Patient negative for fever greater than or equal to 101.5 degrees Fahrenheit, and additional compatible Ebola Virus Disease symptoms. Patient denies exposure to infectious person. Patient denies travel to an Ebola-affected area in the 21 days before illness onset. No symptoms or risks identified at this time. . - Social history: Smoking status: Patient states was never smoker of tobacco. Patient uses alcohol weekly. Patient/guardian denies using marijuana. - Immunization history: Pneumococcal vaccine is up to date, Flu Vaccine < 1 year. ROS: 13:09 Eyes: Negative for injury, pain, redness, discharge, blurry vision and loss of vision. cd ENT: Negative for injury, pain, epistaxis and discharge. Neck: Negative for injury, pain, stiffness and swelling. Cardiovascular: Negative for chest pain, palpitations, edema and pleuritic pain. Respiratory: Negative for shortness of breath, dyspnea on exertion, cough, sputum production, wheezing, hemoptysis and pleuritic chest pain. Abdomen/GI: Negative for abdominal pain, nausea, vomiting, diarrhea, constipation, distension, melena, hematochezia and hematemesis. Back: Negative for injury, pain or muscle spasms. 13:09 : Negative for injury, bleeding, discharge, swelling, dysuria, frequency or urgency. cd 13:09 Constitutional: Positive for poor PO intake, Negative for chills, fever. 13:09 MS/extremity: Positive for ecchymosis, previous fracture of the humerus. No new pain . It is currently splinted., Negative for decreased range of motion, deformity. 13:09 Neuro: Positive for headache, Negative for altered mental status, dizziness, loss of consciousness, seizure activity, speech changes, tingling, visual changes, weakness, Unknown if he had a near syncopal episode. 13:09 All other systems are negative. Exam: Eyes: Pupils equal round and reactive to light, extra-ocular motions intact. Lids and lashes normal. Conjunctiva and sclera are non-icteric and not injected. Cornea within normal limits. Periorbital areas with no swelling, redness, or edema. ENT: Nares patent. No nasal discharge, no septal abnormalities noted. Tympanic membranes are normal and external auditory canals are clear. Oropharynx with no redness, swelling, or masses, exudates, or evidence of obstruction, uvula midline. Mucous membranes moist. Neck: Trachea midline, no thyromegaly or masses palpated, and no cervical lymphadenopathy. Supple, full range of motion without nuchal rigidity, or vertebral point tenderness. No Meningismus. Chest/axilla: Normal chest wall appearance and motion. Nontender with no deformity. No lesions are appreciated. Cardiovascular: Regular rate and rhythm with a normal S1 and S2. No gallops, murmurs, or rubs. Normal PMI, no JVD. No pulse deficits. Respiratory: Lungs have equal breath sounds bilaterally, clear to auscultation and percussion. No rales, rhonchi or wheezes noted. No increased work of breathing, no retractions or nasal flaring. Abdomen/GI: Soft, non-tender, with normal bowel sounds. No distension or tympany. No guarding or rebound. No evidence of tenderness throughout. Back: No spinal tenderness. No costovertebral tenderness. Full range of motion. 13:25 Skin: Warm, dry with normal turgor. Normal color with no rashes, no lesions, and no cd evidence of cellulitis. 13:25 Constitutional: The patient appears alert, awake, well developed, well nourished. 13:25 Head/face: Noted is contusion, that is deep, of the left side of the back of head, a laceration(s), of the left side of the back of head, Basilar skull fracture findings: the patient does not have obvious signs of a basilar skull fracture, no Cheney signs, no hemotympanum, no nasal drainage, no racoon eyes. 13:25 Musculoskeletal/extremity: Extremities: grossly normal except: noted in the right arm: in a splint, ROM: the patient is contracted, Circulation is intact in all extremities. Sensation intact. 13:25 Neuro: Orientation: is normal, to person, place & time. Mentation: is normal, Memory: is normal, Cranial nerves: CN II- XII are normal as tested, Motor: moves all fours, Sensation: is normal, Gait: not tested. Vital Signs: 13:14 BP 134 / 111; Pulse 94; Pulse Ox 95% on R/A; Pain 1/10; sj 13:47 BP 106 / 74; Pulse 101; Temp 98.5(O); Pulse Ox 95% ; Weight 99.79 kg; Height 6 ft. 2 sj in. (187.96 cm); Pain 0/10; 14:00 BP 107 / 61 (auto/); sj 14:00 Pulse 85; Pulse Ox 90% on R/A; sj 14:30 BP 111 / 64 (auto/); Pulse 92; Pulse Ox 91% on R/A; sj 15:00 BP 106 / 60 (auto/); Pulse 91; Pulse Ox 97% on R/A; sj 15:30 BP 108 / 59 (auto/); Pulse 90; Pulse Ox 92% on R/A; sj 13:47 Body Mass Index 28.25 (99.79 kg, 187.96 cm) Clark Coma Score: 13:04 Eye Response: spontaneous(4). Verbal Response: oriented(5). Motor Response: obeys sj commands(6). Total: 15. 13:25 Eye Response: spontaneous(4). Verbal Response: oriented(5). Motor Response: obeys cd commands(6). Total: 15. Trauma Score (Adult): 13:47 Eye Response: spontaneous(1); Verbal Response: oriented(1); Motor Response: obeys sj commands(2); Systolic BP: > 89 mm Hg(4); Respiratory Rate: 10 to 29 per min(4); Lakisha Score: 15; Trauma Score: 12 MDM: 12:48 Patient medically screened. cd 12:57 EKG attached sc1 13:00 Data interpreted: Pulse oximetry: on room air is 95 %. Interpretation: normal. cd 13:27 Differential diagnosis: closed head injury, contusion, fracture, laceration, ICH, cd Recurrent Falls, Neck Injury, syncope vs mechanical fall. 13:28 Data reviewed: vital signs, nurses notes, EMS record, old medical records, EKG, cd radiologic studies, CT scan, and as a result, I will continue to observe the patient, administer IV fluids, NS maintenence, and Zofran for nausea. 13:29 Counseling: I had a detailed discussion with the patient and/or guardian regarding: the cd historical points, exam findings, and any diagnostic results supporting the discharge/admit diagnosis, radiology results, the need for further work-up and treatment in the hospital, risk of leaving the Emergency Department, without completed treatment. ECG:. 14:16 Physician consultation: Estuardo Emerson MD was called at 14:15, was contacted at 14:17, cd regarding admission, to the floor, consult, patient's condition, need to come to ED to see patient, and will see patient in ED, shortly, later today. 14:17 Response to treatment: the patient's symptoms have markedly improved after treatment, cd the patient's condition has returned to base line, and as a result, I will admit patient. 09/10 13:37 Order name: PROTIME/INR; Complete Time: 14:55 EDMS 09/10 14:09 Interpretation: Abnormal: INR 2.6; Elevated INR / On Coumadin. 09/10 13:46 Order name: CBC AUTO DIF, MDIF/RMOR IF IND; Complete Time: 14:55 EDMS 09/10 14:11 Interpretation: Normal. 09/10 14:34 Order name: BASIC METABOLIC PANEL; Complete Time: 14:55 EDMS 09/10 14:56 Interpretation: Normal Except: GLUCOSE 154; Hyperglycemia. 09/10 14:34 Order name: MAGNESIUM; Complete Time: 14:55 EDMS 09/10 14:56 Interpretation: Normal. 09/10 14:34 Order name: HEPATIC PANEL; Complete Time: 14:55 EDMS 09/10 14:56 Interpretation: Normal. 09/10 14:34 Order name: LIPASE; Complete Time: 14:55 EDMS 09/10 14:56 Interpretation: Normal. 09/10 14:34 Order name: ETHYL ALCOHOL; Complete Time: 14:55 EDMS 09/10 14:56 Interpretation: Normal. 09/10 14:45 Order name: TROPONIN I; Complete Time: 14:55 EDMS 09/10 14:55 Interpretation: Normal. 09/11 07:23 Order name: BASIC METABOLIC PANEL [facility] 09/11 07:23 Order name: HEPATIC PANEL [facility] 09/11 07:24 Order name: PROTIME/INR [facility] 09/11 07:45 Order name: CBC AUTO DIF, MDIF/RMOR IF IND [facility] 09/11 08:29 Order name: FREE T4 [facility] 09/11 09:17 Order name: THYROID STIMULATING HORMONE [facility] 09/11 12:16 Order name: RPR EDAL 09/12 09:26 Order name: INR W/ CAPI DRAW EDAL 09/10 13:43 Order name: CAT SCAN; HEAD W/O CON [id number]; Complete Time: 14:12 EDMS 09/10 14:10 Interpretation: Normal Except: No ICH or fracture, See Radiologist report. 09/10 13:44 Order name: CAT SCAN; CERVICAL [id number]; Complete Time: 14:12 EDMS 09/10 14:11 Interpretation: Normal Except: Chronic changes, no acute fx's or subluxations; See cd Radiologist Report. 09/10 13:47 Order name: CHEST; SINGLE VIEW [id number]; Complete Time: 14:12 EDMS 09/10 14:12 Interpretation: Normal. cd 09/10 12:50 Order name: EKG - 12 Lead; Complete Time: 12:55 cd 09/10 12:52 Order name: Iv Saline Lock; Complete Time: 14:08 cd EC:45 Rate is 94 beats/min. Rhythm is irregularly irregular. QRS [place] is Normal. QRS interval cd is normal. QT interval is normal. No Q waves. T waves are Normal. No ST changes noted. Clinical impression: Atrial Fibrillation. Interpreted by me. Dispensed Medications: 12:45 Drug: Zofran 4 mg; Route: PO; tg 13:23 Follow up: Response: Pt vomited again, dr owusu aware. tg 13:30 Drug: Zofran 4 mg; Route: IVP; Infused Over: 2 mins; Site: left hand; sj 14:47 Follow up: Response: Nausea is decreased sj 13:57 Drug: Lidocaine-Epinephrine -2 % (1:100,000) 10 ml; Route: Infiltration; Site: affected tg area; Signatures: Mode Carrero RN RN tg Erin Luna RN RN sc1 Lloyd Owusu MD MD cd Janzen, Sarah
--- NOTE | 2016-09-10 16:05 | ER NURSING DOCUMENTATION ---
Nurse's Notes [facility] Name:Jim Hoover Age:76 yrs Sex:Male :1940 Arrival Date:09/10/2016 Time:12:47 Bed4 Private MD:Wilner Sheets Diagnosis:Head Injury;Head Laceration-: 2 cm; Simple closure with merrill (by MD);Fall-: Recurrent;Low Humerus Fracture-: 11 days ago;Nausea Presentation: 09/10 12:54 Acuity: ARCADIO 2 tg 13:04 Presenting complaint: EMS states: fall backward ground level at home while using 4-pt sj cane, causing 1.5 inch laceration to back of head. No LOC. Emesis x1 upon arrival to hospital. Transition of care: Home. Mechanism of Injury: The problem was sustained at home, resulted from a fall. Risk considerations: on anticoagulant therapy. Notified ED Physician of patient's arrival and CC Dr. Owusu notified. 13:04 Method Of Arrival: EMS: 410 sj Triage Assessment: 13:12 General: Appears uncomfortable, Behavior is cooperative, pleasant. Pain: Complains of sj pain in occipital area. Neuro: Level of Consciousness is awake, alert, Oriented to person, place, time, event, Reports headache occipital area. Cardiovascular: Capillary refill < 3 seconds. Respiratory: Airway is patent Trachea midline Respiratory effort is even, unlabored, Respiratory pattern is regular, symmetrical. Injury Description: Laceration. Historical: - Allergies: Prozac; PENICILLINS; Bactrim; Morphine; Oxycodone HCl; [place] Carbonate; Prozac; SHELLFISH; Dilaudid; - Home Meds: 1. fenofibrate 160 mg oral tab 1 tab once daily 2. Klor-Con 10 10 mEq oral TbER 1 tab once daily for Hypokalemia Prevention 3. liothyronine 50 mcg oral tab 2 tabs once daily, twice a day 4. Lotrel 10-20 mg oral cap once daily for Hypertension 5. Coumadin 5 mg oral tab 1 tab once daily 6. 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 daptomycin IV 8. minocycline 100 mg oral cap 1 cap 9. Ultram 50 mg oral tab 1 tab every 6 hours as needed for Pain 10. lamotrigine 200 mg oral tr24 1 tab once daily 11. Bystolic 10 mg oral tab 1 tab once daily 12. allopurinol 300 mg oral tab 1 tab once daily 13. Wellbutrin XL 150 mg oral Tb24 2 tabs once daily 14. Plavix 75 mg oral tab 1 tab once daily 15. Benicar HCT 40-25 mg oral tab 1 tab once daily 16. Pristiq 100 mg oral Tb24 1 tab once daily - PMHx: BIPOLAR DISORDER; HYPERTENSION; CANCER, PROSTATE; VAGUS NERVE STIMULATOR; BPH; OSTEOARTHRITIS; actinic keratosis; HYPERTENSION; ATRIAL FIB; GOUT; TIA; DEPRESSION; Hyperlipidemia; Diabetes Mellitus; Prostate Cancer; Staphylococcus aureus sepsis; Chronic Hypokalemia; Squamos cell carcinoma; Shoulder Injury (September 08, 2016); - Tetanus: < 10 years. - Ebola Screening: : Patient negative for fever greater than or equal to 101.5 degrees Fahrenheit, and additional compatible Ebola Virus Disease symptoms. Patient denies exposure to infectious person. Patient denies travel to an Ebola-affected area in the 21 days before illness onset. No symptoms or risks identified at this time. . - Social history: Smoking status: Patient states was never smoker of tobacco. Patient uses alcohol weekly. Patient/guardian denies using marijuana. - Immunization history: Pneumococcal vaccine is up to date, Flu Vaccine < 1 year. Screenin:15 Infectious Disease Risk None. Abuse screen: Denies threats or abuse. Denies injuries sj from another. Nutritional screening: On diabetic diet. Assessment: 13:47 Reassessment: Patient denies pain at this time. Patient states feeling better. Patient sj appears in no apparent distress at this time. returned from CT with a second emesis, blood tinged. . Musculoskeletal: Denies weakness in arms and legs. Injury Description: Laceration sustained to right side of back of head is clean, superficial, 0.5 to 2.5 cm long, not bleeding. Vital Signs: 13:14 BP 134 / 111; Pulse 94; Pulse Ox 95% on R/A; Pain 1/10; sj 13:47 BP 106 / 74; Pulse 101; Temp 98.5(O); Pulse Ox 95% ; Weight 99.79 kg; Height 6 ft. 2 sj in. (187.96 cm); Pain 0/10; 14:00 BP 107 / 61 (auto/); sj 14:00 Pulse 85; Pulse Ox 90% on R/A; sj 14:30 BP 111 / 64 (auto/); Pulse 92; Pulse Ox 91% on R/A; sj 15:00 BP 106 / 60 (auto/); Pulse 91; Pulse Ox 97% on R/A; sj 15:30 BP 108 / 59 (auto/); Pulse 90; Pulse Ox 92% on R/A; sj 13:47 Body Mass Index 28.25 (99.79 kg, 187.96 cm) Lakisha Coma Score: 13:04 Eye Response: spontaneous(4). Verbal Response: oriented(5). Motor Response: obeys sj commands(6). Total: 15. 13:25 Eye Response: spontaneous(4). Verbal Response: oriented(5). Motor Response: obeys cd commands(6). Total: 15. Trauma Score (Adult): 13:47 Eye Response: spontaneous(1); Verbal Response: oriented(1); Motor Response: obeys sj commands(2); Systolic BP: > 89 mm Hg(4); Respiratory Rate: 10 to 29 per min(4); Lakisha Score: 15; Trauma Score: 12 ED Course: 12:48 Patient arrived in ED. arc 12:48 Wilner Sheets MD is Private Physician. arc 12:48 Mode Carrero, NICOLAS is Primary Nurse. tg 12:48 Lloyd Owusu MD is Attending Physician. cd 12:[address] pm1 12:54 Triage completed. tg 12:57 EKG attached sc1 13:04 Jolly Marsh is Primary Nurse. sj 13:14 Notified ED Physician of patient's arrival and chief complaint. Dr. Owusu notified. sj 13:15 Inserted peripheral IV: 20 gauge in left Wrist and blood collected. Missed attempts: 20 sj gauge in left antecubital area. 13:15 Valuables Given to family. Patient has correct armband on for positive identification. sj Bed in low position. Call light in reach. Side rails up X2. Pulse Ox - RN Monitoring Only NIBP On - RN Monitoring Only. 13:25 Patient moved back from IN. candido 13:25 Port Xray Completed. candido 13:50 Wound care located on right side of back of head was cleaned with soap and water, sj Patient tolerated well. 14:18 Estuardo Emerson MD is Admitting Physician. cd Administered Medications: 12:45 Drug: Zofran 4 mg; Route: PO; tg 13:23 Follow up: Response: Pt vomited again, dr owusu aware. tg 13:30 Drug: Zofran 4 mg; Route: IVP; Infused Over: 2 mins; Site: left hand; sj 14:47 Follow up: Response: Nausea is decreased sj 13:57 Drug: Lidocaine-Epinephrine -2 % (1:100,000) 10 ml; Route: Infiltration; Site: affected tg area; Outcome: 14:22 Decision to Admit by Provider. cd 16:03 Admitted to Med/surg accompanied by nurse, via stretcher. sj 16:03 Condition: stable 16:03 Report given to Nabeel VALENZUELA 16:03 Instructed on need to admit 16:04 Patient left the ED. Signatures: Mode Carrero RN RN Erin Luna RN RN sc1 Lloyd Owusu MD MD cd Abbott, Laura lea McBride, Philisha pm1 Alyssia Meyer Reg Reg arc Janzen, Sarah
[2016-09-10] MEDS ORDERED: AMLODIPINE BESYLATE 5 MG TABLET PO SCH (16:30)
[2016-09-10] MEDS: NYSTATIN POWDER 1 APPLIC BTL TOPICAL SCH (17:28)
[2016-09-10] MEDS: ALLOPURINOL 300 MG TABLET PO SCH (17:28)
[2016-09-10] MEDS: traMADol HCL 50 MG TABLET PO PRN (17:42)
[2016-09-10] MEDS ORDERED: WATER IRRIG 1,000 ML BOTTLE ONE (18:34)
[2016-09-10] MEDS: FENOFIBRATE 145 MG TABLET PO SCH (20:23)
[2016-09-10] MEDS: metFORMIN 500 MG TABLET PO SCH (20:30)
[2016-09-11 07:01] LABS: ALKALINE PHOSPHATASE 65 U/L (38-126); ALT 33 U/L (21-72); AST 30 U/L (17-59); BILIRUBIN, DIRECT 0.5 mg/dL (0.0-0.4); BILIRUBIN, TOTAL 1.3 mg/dL (0.2-1.3); BLOOD UREA NITROGEN 18 mg/dL (9-20); CALCIUM 9.8 mg/dL (8.4-10.2); CHLORIDE 99 mmol/L (98-107); EST GLOMERULAR FILTRATION RATE > 60 mL/min; GLUCOSE 127 mg/dL (70-100); POTASSIUM 3.5 mmol/L (3.5-5.1); SODIUM 138 mmol/L (137-145); TOTAL PROTEIN 6.9 g/dL (6.3-8.2)
[2016-09-11 07:03] LABS: INR 2.4
[2016-09-11 07:43] LABS: HEMATOCRIT 44.4 % (42.0-54.0); HEMOGLOBIN 15.3 g/dL (14.0-18.0); MEAN CORPUS. HGB CONCENTRATION 34.4 g/dL (32.0-36.0); MEAN CORPUSCULAR HEMOGLOBIN 33.4 pg (29.0-35.0); PLATELET COUNT 277 X 10^3uL (130-440); RED BLOOD COUNT 4.57 X 10^6uL (4.20-6.10); RED CELL DISTRIBUTION WIDTH 12.3 % (11.5-14.5); WHITE BLOOD COUNT 8.7 X 10^3uL (3.9-10.7)
[2016-09-11 07:44] LABS: BASOPHILS 0.5 % (0.0-2.0); EOSINOPHILS 2.9 % (0.0-6.0); EOSINOPHILS# 0.3 X 10^3uL (0.0-0.4); LYMPHOCYTES 14.7 % (20.0-40.0); LYMPHOCYTES# 1.3 X 10^3uL (0.8-3.8); MEAN PLATELET VOLUME 8.8 fL (7.4-10.4); MONOCYTES 8.8 % (2.0-10.0); MONOCYTES# 0.8 X 10^3uL (0.2-1.0); NEUTROPHILS 73.1 % (54.0-75.0); NEUTROPHILS# 6.4 X 10^3uL (2.6-6.7)
[2016-09-11 08:26] LABS: FREE T4 0.72 ng/dL (0.78-2.19)
[2016-09-11 08:40] LABS: THYROID STIMULATING HORMONE 2.95 uIU/mL (0.47-4.68)
[2016-09-11] MEDS: NYSTATIN POWDER 1 APPLIC BTL TOPICAL SCH ×4 (08:43→20:30)
[2016-09-11] MEDS: OLMESARTAN 20 MG TABLET PO SCH (08:44)
[2016-09-11] MEDS: buPROPion XL DAILY 150 MG TABLET PO SCH (08:44)
[2016-09-11] MEDS: LAMOTRIGINE 150 MG PO SCH (08:45)
[2016-09-11] MEDS: NEBIVOLOL HCL 10 MG TABLET PO SCH (08:46)
[2016-09-11] MEDS: CHOLECALCIFEROL 1,000 UNIT CAPSULE PO SCH (08:47)
[2016-09-11] MEDS: metFORMIN 500 MG TABLET PO SCH ×2 (08:47→20:20)
[2016-09-11] MEDS: AMLODIPINE BESYLATE 5 MG TABLET PO SCH (08:48)
[2016-09-11] MEDS: LISINOPRIL 20 MG TABLET PO SCH (08:48)
[2016-09-11] MEDS: POTASSIUM CHLORIDE ER 10 MEQ TABLET PO SCH (08:48)
[2016-09-11] MEDS: ALLOPURINOL 300 MG TABLET PO SCH (08:50)
[2016-09-11] MEDS: WARFARIN SODIUM 2.5 MG TABLET PO SCH (08:50)
[2016-09-11] MEDS: LAMOTRIGINE 25 MG TABLET PO SCH (08:50)
[2016-09-11] MEDS: HYDROCHLOROTHIAZIDE 25 MG TABLET PO SCH (08:50)
[2016-09-11] MEDS: LIOTHYRONINE SODIUM 25 MCG PO SCH (08:52)
[2016-09-11] MEDS ORDERED: ARIPIPRAZOLE 1 MG PO SCH (09:00)
[2016-09-11] MEDS ORDERED: LISINOPRIL 10 MG TABLET PO SCH (09:00)
[2016-09-11] MEDS ORDERED: LEVOMILNACIPRAN HYDROCHLORIDE 80 MG PO SCH (09:00)
[2016-09-11] MEDS ORDERED: LEVOMILNACIPRAN HYDROCHLORIDE 40 MG PO SCH (09:00)
--- NOTE | 2016-09-11 12:09 | PROGRESS NOTE: IM APSO ---
Assessment and Plan - Date of Encounter Date of Encounter: 09/11/16 (1) Fall Status: Acute Assessment and plan: Multiple recent falls, likely related to sensory and motor issues from spinal stenosis. Humerus fracture related to fall and now head injury with laceration. Anticoagulated. Very high risk for fall and devastating injury prior to being able to have back surgery and high risk to reinjure right arm. PT/OT and consideration of [facility]/Swingbed or Home Instead/[facility] care. Liase with Dr Sheets and Care Management on Monday. CT negative. Current Visit: Yes (2) Humerus distal fracture Status: Acute Assessment and plan: seen 09/09 by orthopedics, may need revisit during this hospitalization, unfortunately this precludes use of even a platform walker. Current Visit: No (3) Atrial fibrillation, controlled Status: Chronic Assessment and plan: rate controlled and taking adequate anti coagulation Current Visit: No (4) Bipolar 1 disorder Status: Chronic Assessment and plan: well controlled on usual meds, memory/confusion issue possibly from fall and head injury, may request nursing to perform MoCA, impulsivity will affect risk for further falls. Current Visit: No (5) Diabetes mellitus Status: Chronic Current Visit: No (6) Gait instability Status: Chronic Assessment and plan: related to spinal stenosis and with elevated MCV concern for B12 deficiency as well Current Visit: No (7) Hypertension, benign Status: Chronic Current Visit: No (8) Hypothyroidism, acquired Status: Chronic Current Visit: No - Time Spent With Patient Total time spent with greater than 50% in coordination of care (as documented) at patient's floor/unit and/or counseling patient: 25 - 35 minutes IM: PN Subjective General: good appetite, pain, no confusion, no fever, no chills Cardiovascular: no chest pain, no chest pressure Respiratory: no cough Gastrointestinal: no abdominal pain, no nausea Genitourinary: incontinence Integumentary: rashes (intertrigo groin as well macerated skin right axilla with intertrigo? as well tissue damage from brace.) Neurological: other (Mr. Seo is a 76-year-old gentleman with past medical history significant for bipolar 1 atrial fibrillation on anticoagulation acute head injury from falls with increasing frequent falls and recent head injury yesterday as well recent fall with humerus fracture on the right because of his right humerus fracture and concomitant lumbar spine stenosis with weakness and paresthesia his mobility is markedly decreased contributing to further falls. Concern that discharge home without addressing fci care will increase increased risk of further falls and potentially to a devastating fall and complication. We have discussed possible discharge to home with an nova or home instead divided fci services may help attenuate his impulsivity and falls as well assist in bathing and cleaning as well as dressing light housework and meals. Another option may be short-term placement in the [facility] for long term care or swing bed admission to [facility]. Tentative plan for now would be a PT evaluation and none of durable medical equipment and realistically home safety evaluation) IM: PN Objective Exam - I&O/Vital Signs I&O: Intake & Output 09/10/16 09/11/16 09/11/16 21:59 05:59 13:59 Intake Total 300 345 Output Total 300 650 Balance 0 -305 Weight 104.78 kg 103.646 kg Intake: Oral 300 345 Output: Urine 300 650 Other: Urine Appearance Clear Clear Urine Color Straw Yellow Voiding Method Urinal Urinal # Voids 2 2 Vital Signs: Last Vital Signs Temp 36.8 C 09/11/16 07:00 Pulse 94 H 09/11/16 07:00 Resp 20 09/11/16 07:00 BP 132/93 09/11/16 07:00 Pulse Ox 96 09/11/16 07:00 Oxygen Flow Rate 2 Oxygen Delivery Method CPAP - Constitutional General appearance: Present: obese - Head Head exam: Absent: atraumatic Additional comments: laceration occipu stapled - ENT ENT exam: Present: mucous membranes moist - Neck Neck exam: Present: full ROM - Respiratory Respiratory exam: Present: CTAB - Cardiovascular Cardiovascular exam: Present: RRR - GI/Abdominal GI/Abdominal exam: Present: normal bowel sounds, soft - Skin Skin exam: Present: other (severe intertrigo groin as well right axilla w/ skin breakdown. After shower asked nursing to consider AB pad or washcloth rolled and then rolled gauze with silvadene to help exapand skin folds of axilla.) - Lab Labs: Laboratory Last Values WBC 8.7 X 10^3uL (3.9-10.7) 09/11/16 05:55 RBC 4.57 X 10^6uL (4.20-6.10) 09/11/16 05:55 Hgb 15.3 g/dL (14.0-18.0) 09/11/16 05:55 Hct 44.4 % (42.0-54.0) 09/11/16 05:55 MCV 97.0 fL (80.0-100.0) 09/11/16 05:55 MCH 33.4 pg (29.0-35.0) 09/11/16 05:55 MCHC 34.4 g/dL (32.0-36.0) 09/11/16 05:55 RDW 12.3 % (11.5-14.5) 09/11/16 05:55 Plt Count 277 X 10^3uL (130-440) 09/11/16 05:55 MPV 8.8 fL (7.4-10.4) 09/11/16 05:55 Neutrophils % 73.1 % (54.0-75.0) 09/11/16 05:55 Lymphocytes % 14.7 % (20.0-40.0) L 09/11/16 05:55 Eosinophils % 2.9 % (0.0-6.0) 09/11/16 05:55 Basophils % 0.5 % (0.0-2.0) 09/11/16 05:55 Neutrophils # 6.4 X 10^3uL (2.6-6.7) 09/11/16 05:55 Lymphocytes # 1.3 X 10^3uL (0.8-3.8) 09/11/16 05:55 Monocytes 8.8 % (2.0-10.0) 09/11/16 05:55 Monocytes # 0.8 X 10^3uL (0.2-1.0) 09/11/16 05:55 Eosinophils # 0.3 X 10^3uL (0.0-0.4) 09/11/16 05:55 Basophils # 0.0 X 10^3uL (0.0-0.1) 09/11/16 05:55 PT 33.9 sec (13.0-16.6) H 09/11/16 05:55 INR 2.4 09/11/16 05:55 Sodium 138 mmol/L (137-145) 09/11/16 05:55 Potassium 3.5 mmol/L (3.5-5.1) 09/11/16 05:55 Chloride 99 mmol/L (98-107) 09/11/16 05:55 Carbon Dioxide 26 mmol/L (22-30) 09/11/16 05:55 BUN 18 mg/dL (9-20) 09/11/16 05:55 Creatinine 1.1 mg/dL (0.7-1.3) 09/11/16 05:55 GFR Calculation > 60 mL/min 09/11/16 05:55 Glucose 127 mg/dL (70-100) H 09/11/16 05:55 Calcium 9.8 mg/dL (8.4-10.2) 09/11/16 05:55 Magnesium 1.8 mg/dL (1.6-2.3) 09/10/16 13:00 Total Bilirubin 1.3 mg/dL (0.2-1.3) 09/11/16 05:55 Direct Bilirubin 0.5 mg/dL (0.0-0.4) H 09/11/16 05:55 AST 30 U/L (17-59) 09/11/16 05:55 ALT 33 U/L (21-72) 09/11/16 05:55 Alkaline Phosphatase 65 U/L (38-126) 09/11/16 05:55 Troponin I < 0.012 ng/mL (0.00-0.034) 09/10/16 13:00 Total Protein 6.9 g/dL (6.3-8.2) 09/11/16 05:55 Albumin 4.0 g/dL (3.5-5.0) 09/11/16 05:55 Lipase 24 U/L (23-300) 09/10/16 13:00 TSH 2.95 uIU/mL (0.47-4.68) 09/11/16 05:55 Free T4 0.72 ng/dL (0.78-2.19) L 09/11/16 05:55 Ethyl Alcohol < 10 mg/dL (<10) 09/10/16 13:00 Quality Questions - VTE Prophylaxis Assessment VTE Present on Admission?: No Patient at risk for venous thromboembolism?: Yes VTE Risk Level: Low Risk Pharmaceutical VTE prophylaxis contraindication reason: not indicated Mechanical VTE prophylaxis contraindication reason: not indicated (1) Fall Qualifiers: Encounter type: initial encounter Qualified Code(s): W19.XXXA - Unspecified fall, initial encounter (2) Humerus distal fracture Qualifiers: Encounter type: subsequent encounter Fracture type: closed Fracture alignment: nondisplaced Laterality: right (5) Diabetes mellitus Qualifiers: Diabetes mellitus type: type 2
[2016-09-11 12:15] LABS: RPR NONREACTIVE
[2016-09-11] MEDS: FLUCONAZOLE 100 MG CAPSULE PO SCH ×2 (15:47→20:20)
[2016-09-11] MEDS: SILVER SULFADIAZINE 25 APP/25 GM TUBE TOPICAL SCH ×2 (15:50→20:30)
[2016-09-11] MEDS: traMADol HCL 50 MG TABLET PO PRN (18:26)
[2016-09-11] MEDS ORDERED: HYDROCORTISONE 1% CREAM 28 APP/28 GM TUBE TOPICAL ONE (19:49)
[2016-09-11] MEDS: FENOFIBRATE 145 MG TABLET PO SCH (20:20)
[2016-09-11] MEDS: HYDROCORTISONE 1% CREAM 28 APP/28 GM TUBE TOPICAL SCH (20:30)
[2016-09-12] MEDS: traMADol HCL 50 MG TABLET PO PRN (08:08)
[2016-09-12] MEDS: NYSTATIN POWDER 1 APPLIC BTL TOPICAL SCH (08:09)
[2016-09-12] MEDS ORDERED: LEVOMILNACIPRAN HYDROCHLORIDE 40 MG PO SCH (09:00)
[2016-09-12] MEDS: LAMOTRIGINE 150 MG PO SCH (09:22)
[2016-09-12] MEDS: WARFARIN SODIUM 2.5 MG TABLET PO SCH (09:22)
[2016-09-12] MEDS: LISINOPRIL 20 MG TABLET PO SCH (09:22)
[2016-09-12] MEDS: FLUCONAZOLE 100 MG CAPSULE PO SCH (09:22)
[2016-09-12] MEDS: POTASSIUM CHLORIDE ER 10 MEQ TABLET PO SCH (09:22)
[2016-09-12] MEDS: NEBIVOLOL HCL 10 MG TABLET PO SCH (09:23)
[2016-09-12] MEDS: CHOLECALCIFEROL 1,000 UNIT CAPSULE PO SCH (09:23)
[2016-09-12] MEDS: buPROPion XL DAILY 150 MG TABLET PO SCH (09:24)
[2016-09-12] MEDS: SILVER SULFADIAZINE 25 APP/25 GM TUBE TOPICAL SCH (09:24)
[2016-09-12] MEDS: AMLODIPINE BESYLATE 5 MG TABLET PO SCH (09:25)
[2016-09-12] MEDS: LIOTHYRONINE SODIUM 25 MCG PO SCH (09:28)
[2016-09-12] MEDS: LAMOTRIGINE 25 MG TABLET PO SCH (09:29)
[2016-09-12] MEDS: HYDROCORTISONE 1% CREAM 28 APP/28 GM TUBE TOPICAL SCH (09:29)
[2016-09-12] MEDS: metFORMIN 500 MG TABLET PO SCH (09:29)
[2016-09-12] MEDS: OLMESARTAN 20 MG TABLET PO SCH (09:29)
[2016-09-12] MEDS: HYDROCHLOROTHIAZIDE 25 MG TABLET PO SCH (09:29)
[2016-09-12] MEDS: ALLOPURINOL 300 MG TABLET PO SCH (09:30)
[2016-09-12 11:54] VITALS: BP 148/101; PULSE 85; RESP 16; TEMP 97.8; O2SAT 95
--- NOTE | 2016-09-12 13:26 | PROGRESS NOTE: IM APSO ---
Assessment and Plan - Date of Encounter Date of Encounter: 09/12/16 (1) Fall Status: Acute Current Visit: Yes (2) Gait instability Status: Chronic Assessment and plan: Remains high fall risk due to combination of right humeral fx precluding walker and lumbar spinal stenosis. Pt somewhat impulsive in movements. We discussed safety to prevent further falls. HHC PT, nursing D/C home with HHC and ct manager present when is working. Current Visit: No (3) Lumbar spinal stenosis Status: Chronic Assessment and plan: Surgery has been postponed until humeral fx heals Current Visit: Yes (4) Humerus distal fracture Status: Acute Assessment and plan: Right shoulder immobilizer Tramadol Encouraged pt to relax arm. ortho Current Visit: No (5) Atrial fibrillation, controlled Status: Chronic Current Visit: No (6) Bipolar 1 disorder Status: Chronic Assessment and plan: Pt is more depressed than usual. He was shaken by fall and events that led to rehospitalization. Dealing with pain in humerus and back. Current Visit: No (7) Diabetes mellitus Status: Chronic Current Visit: No (8) Hypertension, benign Status: Chronic Current Visit: No (9) Hypothyroidism, acquired Status: Chronic Current Visit: No - Time Spent With Patient Total time spent with greater than 50% in coordination of care (as documented) at patient's floor/unit and/or counseling patient: IM: PN Subjective Interval history: D/C home with HHC and ct manager General: depression, pain (right shoulder and back and scalp), no good appetite (appetite diminished secondary to depression) Respiratory: no cough Gastrointestinal: no abdominal pain, no nausea Integumentary: rashes (intertrigo groin, macerated skin right axilla ) IM: PN Objective Exam - I&O/Vital Signs I&O: Intake & Output 09/11/16 09/12/16 09/12/16 21:59 05:59 13:59 Intake Total 470 150 Output Total 550 Balance -80 150 Weight 102.512 kg Intake: Oral 470 150 Output: Urine 550 Other: Urine Appearance Clear Clear Urine Color Yellow Yellow Voiding Method Bedside Commode Incontinent Incontinent # Voids 1 Vital Signs: Last Vital Signs Temp 36.6 C 09/12/16 11:00 Pulse 85 09/12/16 11:00 Resp 16 09/12/16 11:00 BP 148/101 09/12/16 11:00 Pulse Ox 95 09/12/16 11:00 Oxygen Flow Rate 2 Oxygen Delivery Method Room Air - Head Head exam: Present: other - Psychiatric Psychiatric exam: Present: depressed, flat affect. Absent: normal mood - Lab Labs: Laboratory Last Values WBC 8.7 X 10^3uL (3.9-10.7) 09/11/16 05:55 RBC 4.57 X 10^6uL (4.20-6.10) 09/11/16 05:55 Hgb 15.3 g/dL (14.0-18.0) 09/11/16 05:55 Hct 44.4 % (42.0-54.0) 09/11/16 05:55 MCV 97.0 fL (80.0-100.0) 09/11/16 05:55 MCH 33.4 pg (29.0-35.0) 09/11/16 05:55 MCHC 34.4 g/dL (32.0-36.0) 09/11/16 05:55 RDW 12.3 % (11.5-14.5) 09/11/16 05:55 Plt Count 277 X 10^3uL (130-440) 09/11/16 05:55 MPV 8.8 fL (7.4-10.4) 09/11/16 05:55 Neutrophils % 73.1 % (54.0-75.0) 09/11/16 05:55 Lymphocytes % 14.7 % (20.0-40.0) L 09/11/16 05:55 Eosinophils % 2.9 % (0.0-6.0) 09/11/16 05:55 Basophils % 0.5 % (0.0-2.0) 09/11/16 05:55 Neutrophils # 6.4 X 10^3uL (2.6-6.7) 09/11/16 05:55 Lymphocytes # 1.3 X 10^3uL (0.8-3.8) 09/11/16 05:55 Monocytes 8.8 % (2.0-10.0) 09/11/16 05:55 Monocytes # 0.8 X 10^3uL (0.2-1.0) 09/11/16 05:55 Eosinophils # 0.3 X 10^3uL (0.0-0.4) 09/11/16 05:55 Basophils # 0.0 X 10^3uL (0.0-0.1) 09/11/16 05:55 PT 33.9 sec (13.0-16.6) H 09/11/16 05:55 Capillary INR 2.7 (0.8-1.2) H D 09/12/16 06:10 INR 2.4 09/11/16 05:55 Sodium 138 mmol/L (137-145) 09/11/16 05:55 Potassium 3.5 mmol/L (3.5-5.1) 09/11/16 05:55 Chloride 99 mmol/L (98-107) 09/11/16 05:55 Carbon Dioxide 26 mmol/L (22-30) 09/11/16 05:55 BUN 18 mg/dL (9-20) 09/11/16 05:55 Creatinine 1.1 mg/dL (0.7-1.3) 09/11/16 05:55 GFR Calculation > 60 mL/min 09/11/16 05:55 Glucose 127 mg/dL (70-100) H 09/11/16 05:55 Calcium 9.8 mg/dL (8.4-10.2) 09/11/16 05:55 Magnesium 1.8 mg/dL (1.6-2.3) 09/10/16 13:00 Total Bilirubin 1.3 mg/dL (0.2-1.3) 09/11/16 05:55 Direct Bilirubin 0.5 mg/dL (0.0-0.4) H 09/11/16 05:55 AST 30 U/L (17-59) 09/11/16 05:55 ALT 33 U/L (21-72) 09/11/16 05:55 Alkaline Phosphatase 65 U/L (38-126) 09/11/16 05:55 Troponin I < 0.012 ng/mL (0.00-0.034) 09/10/16 13:00 Total Protein 6.9 g/dL (6.3-8.2) 09/11/16 05:55 Albumin 4.0 g/dL (3.5-5.0) 09/11/16 05:55 Lipase 24 U/L (23-300) 09/10/16 13:00 TSH 2.95 uIU/mL (0.47-4.68) 09/11/16 05:55 Free T4 0.72 ng/dL (0.78-2.19) L 09/11/16 05:55 Ethyl Alcohol < 10 mg/dL (<10) 09/10/16 13:00 RPR Nonreactive 09/11/16 05:55 (1) Fall Qualifiers: Encounter type: initial encounter Qualified Code(s): W19.XXXA - Unspecified fall, initial encounter (4) Humerus distal fracture Qualifiers: Encounter type: subsequent encounter Fracture type: closed Fracture alignment: nondisplaced Laterality: right (7) Diabetes mellitus Qualifiers: Diabetes mellitus type: type 2
[2016-09-14 08:44] LABS: IMMUNOGLOB FREE LIGHT CHAINS SEE COMMENTS
--- NOTE | 2016-09-14 10:51 | DISCHARGE SUMMARY ---
DATE OF ADMISSION: 09/10/16 DATE OF DISCHARGE: 09/12/16 ATTENDING PHYSICIAN: Wilner Sheets MD DIAGNOSES 1. Status post fall. 2. Gait instability. 3. Posterior scalp laceration. 4. Closed head injury. 5. Lumbar spinal stenosis with an element of leg weakness. 6. Right distal humeral fracture. 7. Atrial fibrillation. 8. Bipolar disorder. 9. Type 2 diabetes mellitus. 10. Hypertension. 11. Hypothyroidism. HISTORY OF PRESENT ILLNESS: Patient is a 76-year-old male with lumbar spinal stenosis resulting in gait instability and element of leg weakness and sensory changes. He was scheduled for lumbar spinal stenosis surgery until he suffered a right distal humeral fracture recently. The goal is to get the humeral fracture to heal so he can proceed with the lumbar spine surgery next. Patient was at home by himself in his Lazy-Boy chair while his was shopping. Patient heard some commotion outside and proceeded to investigate, and in the process he suffered a fall and a closed head injury. Head CT scan and spinal CT scan showed no significant changes beyond chronic degenerative changes. Laceration was closed with merrill. At this time, the patient was not felt to be safe to be at home by himself and his concurs. Please see previously dictated history and physical for further details. HOSPITAL COURSE: Patient was admitted following a fall resulting in a closed head injury and an occipital laceration. Fall was related to gait instability with leg weakness secondary to lumbar spinal stenosis. This was complicated by recent right distal humeral fracture. Patient has been somewhat impulsive in terms of trying to do things for himself. Note that patient is currently on Warfarin for atrial fibrillation, making his closed head injury a higher risk situation. Patient has atrial fibrillation and was monitored for arrhythmias. Patient unable to use a walker due to the right shoulder situation. Patient was evaluated by physical therapy and physical therapy acknowledges that patient remains at a moderate fall risk. 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 Patient exhibits no signs of an intracranial bleed or other serious pathology from the closed head injury. Patient remains at high risk for requiring rehospitalization for related reasons. Patient does have underlying bipolar I with associated depression, and he was definitely more depressed during his stay than usual. He was not a good candidate for [facility] for this reason. DISCHARGE INSTRUCTIONS: Patient was encouraged to ambulate 3 times a day and be up in a chair 3 times a day. However when he is by himself, he is to remain in a wheelchair. He is on a cardiac diet. Scalp merrill to be removed in 7 days. Patient to follow up with Dr. Sheets as needed. He is already scheduled for follow up appointments with Orthopedics and Neurosurgery in the near future. He will be followed by Home Health Care, nursing and physical therapy. DISCHARGE MEDICATIONS Allopurinol 300 mg p.o. daily. Amlodipine/Benazepril 10/20 mg 1 tab p.o. daily. Abilify 2 mg tab p.o. daily. Bupropion XL 300 mg p.o. daily. Vitamin D 2000 International Units p.o. daily. Fenofibrate 160 mg p.o. q.h.s. Fluconazole 100 mg p.o. b.i.d. for intertriginous candidiasis. Fetzima 80 mg p.o. daily. Liothyronine (Cytomel) 25 mcg p.o. daily for depression. Metformin 500 mg p.o. b.i.d. Minocycline 100 mg p.o. daily. Bystolic 20 mg p.o. daily. Nystatin powder applied topically for intertriginous candidiasis q.i.d. Olmesartan/Hydrochlorothiazide 40/25 mg p.o. daily. KCL 10 MEQ p.o. daily. Silvadene cream to be applied to the topically to the right axilla where he has macerated skin related to the right shoulder rotator cuff injury. Tramadol 50 mg p.o. 1-2 tablets PRN pain maximum 8 tablets per 24 hours. Warfarin 2.5 mg p.o. daily. Copies to: Dr. Anderson, Dr. Santillan, Dr. Matt BRIAN
[2016-09-15 17:10] LABS: FOLATES 4.9 ng/mL (3.0-16.0)
== END 2016-09-12 13:19 | disposition home or self-care (01) | DRG 914 ==
LOC: ER 12:47 → IN 15:46
PROVIDERS: ADMIT Hospitalist; ATTEND Family Medicine
DX: S09.90XA Unspecified injury of head, initial encounter (principal); W01.0XXA Fall on same level from slipping, tripping and stumbling without subsequent striking against object, initial encounter; M48.06 Spinal stenosis, lumbar region; S42.351D Displaced comminuted fracture of shaft of humerus, right arm, subsequent encounter for fracture with routine healing; I10 Essential (primary) hypertension; E78.5 Hyperlipidemia, unspecified; M10.9 Gout, unspecified; Z86.73 Personal history of transient ischemic attack (TIA), and cerebral infarction without residual deficits; G47.33 Obstructive sleep apnea (adult) (pediatric); I48.2 Chronic atrial fibrillation; C61 Malignant neoplasm of prostate; F31.9 Bipolar disorder, unspecified; E11.9 Type 2 diabetes mellitus without complications; E03.9 Hypothyroidism, unspecified; E83.42 Hypomagnesemia; Z85.828 Personal history of other malignant neoplasm of skin; M15.9 Polyosteoarthritis, unspecified; F32.9 Major depressive disorder, single episode, unspecified; M54.5 Low back pain; R26.81 Unsteadiness on feet; E66.01 Morbid (severe) obesity due to excess calories; Z79.01 Long term (current) use of anticoagulants; Z79.899 Other long term (current) drug therapy; Z74.3 Need for continuous supervision
CPT/HCPCS: 36415; 70450; 71010; 72125; 80048; 80076; 80320; 82607; 82747; 83690; 83735; 83883; 84155; 84156; 84165; 84166; 84439; 84443; 84484; 85025; 85610; 86592; 93010; 93041; 96374; 99285; A0425; A0429; A4217